=== PATIENT | male | born 1955 | race African-American/Black ===

== ENCOUNTER 2020-08-10 10:04 | Emergency (ER) | payer MEDICARE, MEDICAID, SELFPAY ==
--- NOTE | ~2020-08-10 | CT_ITS ---
EXAMINATION: CT ABDOMEN AND PELVIS WITH CONTRAST CLINICAL INFORMATION: Lower abdominal pain and black stool. Question GI bleed. COMPARISON: None TECHNIQUE: Multidetector volumetric images were obtained from the superior aspect of the liver through the pubic symphysis following administration 85 mL of Omnipaque 350 intravenous contrast. Sagittal and coronal reformatted images were obtained on the technologist's workstation. Oral contrast: No This CT examination was performed using dose optimization techniques as appropriate, variously including the following: *Automated exposure control *Adjustment of mA and/or kV according to patient size (this includes techniques or standardized protocols for targeted exams where dose is matched to indication/reason for exam; i.e. extremities or head) *Use of iterative reconstruction technique DLP: 956 mGy-cm FINDINGS: LUNG BASES: The visualized lung bases are unremarkable. LIVER, GALLBLADDER, AND BILIARY TREE: The liver is normal in size, shape, and attenuation. No focal hepatic lesion or biliary ductal dilatation is present. The gallbladder is unremarkable with no evidence of radiopaque gallstones, gallbladder wall thickening, or obvious pericholecystic inflammatory changes. PANCREAS: Unremarkable. SPLEEN: Unremarkable. ADRENAL GLANDS: Unremarkable. KIDNEYS AND URETERS: There is a 2 cm right renal cyst. There is mild right hydronephrosis. The right ureter does not appear dilated. Appearance is suggestive of a mild right UPJ obstruction. There is no excreted contrast seen in the right ureter. The left kidney is unremarkable. BLADDER: Unremarkable. GASTROINTESTINAL TRACT: There is stool throughout the colon. The small and large bowel are otherwise unremarkable. The appendix is unremarkable. There is question of wall thickening of the stomach versus changes due to underdistention. This is seen on all 3 phases. Clinical correlation recommended. ABDOMINAL WALL: No significant hernia is appreciated. LYMPH NODES: Normal. VASCULAR: Unremarkable. PELVIC VISCERA: The prostate gland is slightly enlarged measuring 3.6 x 5.3 cm in AP and transverse dimension. OSSEOUS STRUCTURES: There are degenerative changes of the spine. CT/CT abdomen pelvis w con IMPRESSION: Question wall thickening of the stomach/gastritis versus changes due to underdistention. Clinical correlation recommended. Constipation. Right renal cyst. Mild right hydronephrosis probably representing UPJ obstruction. Slightly enlarged prostate gland..
[2020-08-10 10:09] VITALS: BP 147/70; PULSE 89; RESP 18; TEMP 37.1; O2SAT 100; BMI 23.7
--- NOTE | 2020-08-10 10:50 | ECG_ITS ---
Test Reason : SOB Blood Pressure : / mmHG Vent. Rate : 074 BPM Atrial Rate : 074 BPM P-R Int : 148 ms QRS Dur : 072 ms QT Int : 376 ms P-R-T Axes : 065 008 052 degrees QTc Int : 417 ms Normal sinus rhythm Normal ECG No previous ECGs available Referred By: Myla Leigh Electronically Signed By:ANNETTE BRIGHT
[2020-08-10] MEDS: 0.9 % Sodium Chloride 1,000 ML 999 ML IVCONT ×2 (12:07→14:39)
[2020-08-10 12:08] LABS: MANUAL DIFF FLAG NO
[2020-08-10 12:10] LABS: Basophils Percent Auto 0.3 % (0-2); Eosinophils Absolute Auto 0.1 X10*3/uL (0.0-0.4); Eosinophils Percent Auto 0.9 % (0-4); Hematocrit 36.1 % (42-52); Hemoglobin 11.9 g/dl (14.0-18.0); Imm Gran Abs Auto 0.02 X10*3/uL (0.00-0.03); Imm Gran Pct Auto 0.2 % (0.0-0.4); Lymphocytes Absolute Auto 3.2 X10*3/uL (1.2-4.9); Lymphocytes Percent Auto 31.7 % (20-40); Mean Corpuscular Hemoglobin 32.2 pg (27.0-33.0); Mean Corpuscular Volume 97.6 fL (80-98); Mean Platelet Volume 8.9 fL (9.4-12.4); Monocytes Absolute Auto 0.8 X10*3/uL (0.1-1.2); Monocytes Percent Auto 7.7 % (2-11); Neutrophils Absolute Auto 5.9 X10*3/uL (2.0-8.3); Neutrophils Percent Auto 59.2 % (45-73); Platelet Count 311 X10*3/uL (160-400); Red Cell Distribution Width 14.2 % (11.0-16.0); White Blood Count 9.9 X10*3/uL (4.8-10.8)
[2020-08-10 12:18] LABS: Glucose Urine UA 500 MG/DL (NEG); INTERNATIONAL NORM RATIO 1.1 (0.9-1.1); Leukocyte Esterase Urine NEG (NEG); Nitrite Urine NEG (NEG); Prothrombin Time 12.5 SEC (10.8-13.0); Specific Gravity - Urine 1.015 (1.005-1.025); Urine Blood NEG (NEG); Urine Ketones NEG (NEG); Urine Protein NEG (NEG-TRACE)
[2020-08-10 12:21] LABS: Partial Thromboplastin Time 32.7 SEC (24.1-38.0)
[2020-08-10 12:28] LABS: Ethanol < 10 mg/dL
[2020-08-10 12:31] LABS: Appearance Urine CLEAR; Color Urine YELLOW
[2020-08-10 12:34] LABS: Alanine Aminotransferase 21 U/L (0-40); Albumin Level 4.1 g/dL (3.5-5.0); Alkaline Phosphatase 63 U/L (39-117); Anion Gap 15 (12-20); Aspartate Amino Transferase 26 U/L (5-37); Bilirubin Direct < 0.2 mg/dL (0.0-0.5); Bilirubin Total 0.3 mg/dL (0.0-1.0); Blood Urea Nitrogen 5 mg/dL (9-16); Calcium 8.8 mg/dL (8.4-10.2); Carbon Dioxide 25 mmol/L (22-29); Chloride 100 mmol/L (96-108); Creatinine Clr Calc Pharmacy 65.3; Estimated Glomerular Filt Rate > 60; Glucose Random 271 mg/dL (60-115); Lipase 46 U/L (8-78); Magnesium 2.4 mg/dL (1.6-2.6); Potassium 5.1 mmol/L (3.3-5.1); Sodium 135 mmol/L (135-145); Total Protein 6.9 g/dL (6.5-8.0)
[2020-08-10 12:56] LABS: Influenza A PCR NEGATIVE (Negative); Influenza B PCR NEGATIVE (Negative); Resp Syncy Virus RNA Qual PCR NEGATIVE (Negative); SARS COV2 PCR INHOUSE NEGATIVE (Negative)
[2020-08-10] MEDS: iohexoL 350 MG/ML 75 ML INFUS..BTL IV (13:30)
[2020-08-10 13:44] LABS: OBS Int Ctl Valid YES; OBS1 POSITIVE (NEGATIVE)
--- NOTE | 2020-08-10 14:11 | ED_ITS ---
HPI - GI Bleed General Chief complaint: Abdominal Pain Stated complaint: abd pain, black stool Time Seen by Provider: 08/10/20 10:50 Source: patient Mode of arrival: ambulatory Limitations: no limitations History of Present Illness HPI Narrative: 65-year-old male with a past medical history of borderline diabetic otherwise denies any other medical history although recently moved from [place] to [place] presenting to the ED with complaints of black stools for the past 4 days with lower abdominal pain with associated nausea worse today. Patient also admits to urinating larger amount of urine than normal. Denies any dizziness, headaches, lightheadedness, changes in vision, sore throat, cough, neck pain/stiffness, chest pain, shortness of breath, dyspnea on exertion, orthopnea, palpitations, lower extremity edema, vomiting, blood streaked emesis, coffee-ground emesis, gross hematemesis, back pain, hematuria, dysuria, blood streak stool, gross hematochezia, recent travel, bad food exposure or any other symptoms complaints or concerns at this time. Reports he has been using [id number] medications although denies using Pepto-Bismol. complaint: melena Onset (ago): day(s) (Four days) Pain Consistency: constant Severity: moderate Relieving factors: none Exacerbating factors: bowel movement Associated symptoms: abdominal pain Treatments Prior to Arrival: OTC meds Related Data Previous Rx's Medication Instructions Recorded acetaminophen [Tylenol Extra 1,000 mg PO QID PRN #14 tab 08/10/20 Strength] alcohol swabs [Alcohol Prep Pads] 1 pad TOPICAL .B.i.d. #100 ea 08/10/20 blood sugar diagnostic [FreeStyle #100 ea 08/10/20 Lite Strips] blood-glucose meter [FreeStyle #1 ea 08/10/20 Lite Meter] docusate sodium [Colace] 100 mg PO BID #14 cap 08/10/20 lancets [FreeStyle Lancets] #100 ea 08/10/20 metformin 500 mg PO DAILY #30 tab 08/10/20 omeprazole 40 mg PO DAILY #30 cap 08/10/20 oxycodone 5 mg PO BID PRN #10 tab 08/10/20 tamsulosin [Flomax] 0.4 mg PO DAILY #30 cap 08/10/20 Allergies Allergy/AdvReac Type Severity Reaction Status Date / Time seafood Allergy Unknown Unknown Verified 08/10/20 10:13 Review of Systems Review of Systems: Constitutional : + Chills, No Weight loss, No Fever, No Night Sweats, No Fatigue, No Malaise ENT/Mouth: No ear pain, No sore throat, No Difficulty swallowing Cardiovascular : No Chest Pain, No SOB, No Dyspnea on Exertion, No Orthopnea, No Edema, No Palpitations Respiratory : No Cough, No Sputum, No Wheezing, No Dyspnea Gastrointestinal : + Nausea, + lower abd pain, + Melena, No Vomiting, No Diarrhea, No blood streaked emesis, No coffee-ground emesis, No gross hematemesis, No blood streak stool, No gross hematochezia, Genitourinary : No irregular bleeding, No Dysuria, No Urinary Frequency, No Hematuria,No Urinary Incontinence, No Urgency, No Flank Pain Musculoskeletal : No joint pain, No Myalgias, No Joint Swelling Skin : No Skin Lesions, No rash Neuro : No Weakness, No Numbness, No Paresthesias, No Loss of Consciousness, No Dizziness, No Headache Psych : No Social Issues, Heme/Lymph: No Bruising, No Bleeding, No Lymphadenopathy Endocrine : + Polyuria, + Polydipsia, No Temperature Intolerance Yes all other systems are reviewed and are negative [facility] Past Medical History Attestation statement: The following information was validated with the patient. Medical History Borderline diabetic Social History Social History Smoking Status: Light tobacco smoker Advance Directives: No Advance Directives Information Provided: No Physical Exam Vital Signs: Vital Signs: Last Vital Signs Temp 97.8 F 08/10/20 15:32 Pulse 70 08/10/20 15:32 Resp 16 08/10/20 15:32 BP 142/68 H 08/10/20 15:32 Pulse Ox 100 08/10/20 15:32 Body Mass Index 23.7 vital signs have been reviewed as normal and appeared to be correct. Blood pressure normal. Heart rate normal. Respiration rate normal. Temperature normal. Oxygen saturation normal. Appearance: Alert. Oriented X3. No acute distress. Head: Normal external exam. Normocephalic. Eyes: PERRLA. EOMI. Conjunctiva and sclera normal. Eyelids normal. ENT: Pharynx normal. Uvula midline. Moist mucous membranes. Neck: Normal inspection. Neck supple. FROM. No adenopathy. No meningeal signs. CVS: Normal heart rate and rhythm. Heart sound normal. No murmurs noted. Pulses normal throughout. Respiratory: No respiratory distress. Painless inspiration. Breath sounds normal. No wheezes/rales/rhonchi noted. Chest nontender. No accessory muscle usage noted or decreased air movement noted. Abdomen: Soft and mild tenderness to palpation to suprapubic/bilateral lower abdomen. Nondistended. No guarding. No rigidity. Bowel sounds normal in all 4 quadrants. No distention noted. No organomegaly noted. No visible injury noted. No rebound tenderness. Negative Rovsing sign. Negative obturator's sign. Negative psoas sign. Negative Tatum sign. : [employer] present Rosalba, PCT. Normal external rectal exam no hemorrhoids noted. No fissures noted. Normal sphincter tone noted. Normal rectal tone. On rectal exam no internal hemorrhoids noted. Patient with black colored stools. Back: No CVA tenderness. Full range of motion noted. Skin: Skin warm and dry. Normal skin color. Normal skin turgor. No rashes/lesions/lacerations noted. Extremities: No lower extremity edema noted. No calf tenderness noted. Extremities exhibit normal range of motion. Extremities nontender. Neuro: Oriented X 3. No motor deficit. No sensory deficit. Reflexes normal. Course Course Course Narrative: 10:50am - 65-year-old male with a past medical history of borderline diabetic otherwise denies any other medical history although recently moved from [place] to [place] presenting to the ED with complaints of black stools for the past 4 days with lower abdominal pain with associated nausea worse today. Patient also admits to urinating larger amount of urine than normal. - Plan: Labs, stool occult, UA, A1c level, EKG, CT scan of abdomen and pelvis with IV contrast. Provide a L of IV fluids then re-evaluate. Reevaluation(s) Reevaluation #1: - labs obtained and patient with mild anemia RBC at 3.7. - hemoglobin 11.9 - hematocrit 36.1 - no prior labs in our system to compare to at this time. - BUN 5 - random glucose 271 - patient with 500 glucose in urine otherwise no evidence of UTI. - patient is positive for stool occult blood - negative for COVID/RSV/flu - CT scan of abdomen and pelvis with IV contrast revealed IMPRESSION: Question wall thickening of the stomach/gastritis versus changes due to underdistention. Clinical correlation recommended. Constipation. Right renal cyst. Mild right hydronephrosis probably representing UPJ obstruction. Slightly enlarged prostate gland. - therefore consulted with [employer] [employer] [facility] [employer] Dr. Tobar and we discussed the patient together and he reported since the patient is hemodynamically stable and not actively bleeding not vomiting blood and not having bright red stools that the patient can be treated with a PPI 40 mg of omeprazole and can follow up with him on an outpatient basis. - awaiting to consult with Dr. Chowdhury the urologist based on the patient's mild right hydronephrosis/right UPJ obstruction - patient understands agrees with this plan. Time: 14:38 Reevaluation #2: - I consulted with Dr. Chowdhury regarding the CT scan results and he reported that as long as the patient's kidney function was within normal limits that the patient can be discharged and followed up as an outpatient basis. Patient's kidney function is within normal limits therefore will DC home with symptomatic treatment instructions to follow up with Dr. Chowdhury and Dr. Tobar. Patient understands agrees with this plan. Time: 15:09 [facility] - GI Bleed Medical Records Attestation: I reviewed the patient's medical records. Lab Data Attestation: I reviewed the patient's lab results. Result diagrams: 08/10/20 12:02 08/10/20 12:02 Labs: Lab Results 08/10/20 08/10/20 08/10/20 Range/Units 12:02 12:02 12:02 WBC 9.9 (4.8-10.8) X10*3/uL RBC 3.70 L (4.60-5.80) X10*6/uL Hgb 11.9 L (14.0-18.0) g/dl Hct 36.1 L (42-52) % MCV 97.6 (80-98) fL MCH 32.2 (27.0-33.0) pg MCHC 33.0 (31.0-36.0) g/dl RDW 14.2 (11.0-16.0) % Plt Count 311 (160-400) X10*3/uL MPV 8.9 L (9.4-12.4) fL Immature Gran % (Auto) 0.2 (0.0-0.4) % Neut % (Auto) 59.2 (45-73) % Lymph % (Auto) 31.7 (20-40) % Lamar % (Auto) 7.7 (2-11) % Eos % (Auto) 0.9 (0-4) % Baso % (Auto) 0.3 (0-2) % Lymph # (Auto) 3.2 (1.2-4.9) X10*3/uL Lamar # (Auto) 0.8 (0.1-1.2) X10*3/uL Eos # (Auto) 0.1 (0.0-0.4) X10*3/uL Baso # (Auto) 0.0 (0.0-0.2) X10*3/uL Abs Immat Gran (auto) 0.02 (0.00-0.03) X10*3/uL Absolute Neuts (auto) 5.9 (2.0-8.3) X10*3/uL Absolute Nucleated RBC 0.000 (0.0-0.012) X10*3/uL Nucleated RBC % (auto) 0.0 (0.0-0.2) /100WBC Hold Purple Top SEE NOTE PT 12.5 (10.8-13.0) SEC INR 1.1 (0.9-1.1) APTT 32.7 (24.1-38.0) SEC Sodium (135-145) mmol/L Potassium (3.3-5.1) mmol/L Chloride (96-108) mmol/L Carbon Dioxide (22-29) mmol/L Anion Gap (12-20) BUN (9-16) mg/dL Creatinine (0.5-1.4) mg/dL Estim Creat Clear Calc Estimated GFR POC Glucose (60-115) mg/dL Random Glucose (60-115) mg/dL Calcium (8.4-10.2) mg/dL Magnesium (1.6-2.6) mg/dL Total Bilirubin (0.0-1.0) mg/dL Direct Bilirubin (0.0-0.5) mg/dL AST (5-37) U/L ALT (0-40) U/L Alkaline Phosphatase (39-117) U/L Total Protein (6.5-8.0) g/dL Albumin (3.5-5.0) g/dL Lipase (8-78) U/L Urine Color Urine Appearance Urine pH (5.0-8.0) Ur Specific [place] (1.005-1.025) Urine Protein (NEG-TRACE) MG/DL Urine Glucose (UA) (NEG) MG/DL Urine Ketones (NEG) MG/DL Urine Blood (NEG) Urine Nitrite (NEG) Ur Leukocyte Esterase (NEG) Stool Occult Blood (NEGATIVE) Ethyl Alcohol mg/dL Coronavirus (PCR) (Negative) Influenza Type A (PCR) (Negative) Influenza Type B (PCR) (Negative) RSV RNA Qual (PCR) (Negative) 08/10/20 08/10/20 08/10/20 Range/Units 12:02 12:02 12:02 WBC (4.8-10.8) X10*3/uL RBC (4.60-5.80) X10*6/uL Hgb (14.0-18.0) g/dl Hct (42-52) % MCV (80-98) fL MCH (27.0-33.0) pg MCHC (31.0-36.0) g/dl RDW (11.0-16.0) % Plt Count (160-400) X10*3/uL MPV (9.4-12.4) fL Immature Gran % (Auto) (0.0-0.4) % Neut % (Auto) (45-73) % Lymph % (Auto) (20-40) % Lamar % (Auto) (2-11) % Eos % (Auto) (0-4) % Baso % (Auto) (0-2) % Lymph # (Auto) (1.2-4.9) X10*3/uL Lamar # (Auto) (0.1-1.2) X10*3/uL Eos # (Auto) (0.0-0.4) X10*3/uL Baso # (Auto) (0.0-0.2) X10*3/uL Abs Immat Gran (auto) (0.00-0.03) X10*3/uL Absolute Neuts (auto) (2.0-8.3) X10*3/uL Absolute Nucleated RBC (0.0-0.012) X10*3/uL Nucleated RBC % (auto) (0.0-0.2) /100WBC Hold Purple Top PT (10.8-13.0) SEC INR (0.9-1.1) APTT (24.1-38.0) SEC Sodium 135 (135-145) mmol/L Potassium 5.1 (3.3-5.1) mmol/L Chloride 100 (96-108) mmol/L Carbon Dioxide 25 (22-29) mmol/L Anion Gap 15 (12-20) BUN 5 L (9-16) mg/dL Creatinine 1.12 (0.5-1.4) mg/dL Estim Creat Clear Calc 65.3 Estimated GFR > 60 POC Glucose (60-115) mg/dL Random Glucose 271 H (60-115) mg/dL Calcium 8.8 (8.4-10.2) mg/dL Magnesium 2.4 (1.6-2.6) mg/dL Total Bilirubin 0.3 (0.0-1.0) mg/dL Direct Bilirubin < 0.2 (0.0-0.5) mg/dL AST 26 (5-37) U/L ALT 21 (0-40) U/L Alkaline Phosphatase 63 (39-117) U/L Total Protein 6.9 (6.5-8.0) g/dL Albumin 4.1 (3.5-5.0) g/dL Lipase 46 (8-78) U/L Urine Color Urine Appearance Urine pH (5.0-8.0) Ur Specific [place] (1.005-1.025) Urine Protein (NEG-TRACE) MG/DL Urine Glucose (UA) (NEG) MG/DL Urine Ketones (NEG) MG/DL Urine Blood (NEG) Urine Nitrite (NEG) Ur Leukocyte Esterase (NEG) Stool Occult Blood (NEGATIVE) Ethyl Alcohol < 10 mg/dL Coronavirus (PCR) NEGATIVE (Negative) Influenza Type A (PCR) NEGATIVE (Negative) Influenza Type B (PCR) NEGATIVE (Negative) RSV RNA Qual (PCR) NEGATIVE (Negative) 08/10/20 08/10/20 08/10/20 Range/Units 12:02 13:37 15:30 WBC (4.8-10.8) X10*3/uL RBC (4.60-5.80) X10*6/uL Hgb (14.0-18.0) g/dl Hct (42-52) % MCV (80-98) fL MCH (27.0-33.0) pg MCHC (31.0-36.0) g/dl RDW (11.0-16.0) % Plt Count (160-400) X10*3/uL MPV (9.4-12.4) fL Immature Gran % (Auto) (0.0-0.4) % Neut % (Auto) (45-73) % Lymph % (Auto) (20-40) % Lamar % (Auto) (2-11) % Eos % (Auto) (0-4) % Baso % (Auto) (0-2) % Lymph # (Auto) (1.2-4.9) X10*3/uL Lamar # (Auto) (0.1-1.2) X10*3/uL Eos # (Auto) (0.0-0.4) X10*3/uL Baso # (Auto) (0.0-0.2) X10*3/uL Abs Immat Gran (auto) (0.00-0.03) X10*3/uL Absolute Neuts (auto) (2.0-8.3) X10*3/uL Absolute Nucleated RBC (0.0-0.012) X10*3/uL Nucleated RBC % (auto) (0.0-0.2) /100WBC Hold Purple Top PT (10.8-13.0) SEC INR (0.9-1.1) APTT (24.1-38.0) SEC Sodium (135-145) mmol/L Potassium (3.3-5.1) mmol/L Chloride (96-108) mmol/L Carbon Dioxide (22-29) mmol/L Anion Gap (12-20) BUN (9-16) mg/dL Creatinine (0.5-1.4) mg/dL Estim Creat Clear Calc Estimated GFR POC Glucose 196 H (60-115) mg/dL Random Glucose (60-115) mg/dL Calcium (8.4-10.2) mg/dL Magnesium (1.6-2.6) mg/dL Total Bilirubin (0.0-1.0) mg/dL Direct Bilirubin (0.0-0.5) mg/dL AST (5-37) U/L ALT (0-40) U/L Alkaline Phosphatase (39-117) U/L Total Protein (6.5-8.0) g/dL Albumin (3.5-5.0) g/dL Lipase (8-78) U/L Urine Color YELLOW Urine Appearance CLEAR Urine pH 7.0 (5.0-8.0) Ur Specific [place] 1.015 (1.005-1.025) Urine Protein NEG (NEG-TRACE) MG/DL Urine Glucose (UA) 500 H (NEG) MG/DL Urine Ketones NEG (NEG) MG/DL Urine Blood NEG (NEG) Urine Nitrite NEG (NEG) Ur Leukocyte Esterase NEG (NEG) Stool Occult Blood POSITIVE (NEGATIVE) Ethyl Alcohol mg/dL Coronavirus (PCR) (Negative) Influenza Type A (PCR) (Negative) Influenza Type B (PCR) (Negative) RSV RNA Qual (PCR) (Negative) Imaging Data CT scan of abdomen and pelvis with IV contrast: Attestation: I personally reviewed and interpreted this imaging study as follows: Radiologist's impression: FINDINGS: LUNG BASES: The visualized lung bases are unremarkable. LIVER, GALLBLADDER, AND BILIARY TREE: The liver is normal in size, shape, and attenuation. No focal hepatic lesion or biliary ductal dilatation is present. The gallbladder is unremarkable with no evidence of radiopaque gallstones, gallbladder wall thickening, or obvious pericholecystic inflammatory changes. PANCREAS: Unremarkable. SPLEEN: Unremarkable. ADRENAL GLANDS: Unremarkable. KIDNEYS AND URETERS: There is a 2 cm right renal cyst. There is mild right hydronephrosis. The right ureter does not appear dilated. Appearance is suggestive of a mild right UPJ obstruction. There is no excreted contrast seen in the right ureter. The left kidney is unremarkable. BLADDER: Unremarkable. GASTROINTESTINAL TRACT: There is stool throughout the colon. The small and large bowel are otherwise unremarkable. The appendix is unremarkable. There is question of wall thickening of the stomach versus changes due to underdistention. This is seen on all 3 phases. Clinical correlation recommended. ABDOMINAL WALL: No significant hernia is appreciated. LYMPH NODES: Normal. VASCULAR: Unremarkable. PELVIC VISCERA: The prostate gland is slightly enlarged measuring 3.6 x 5.3 cm in AP and transverse dimension. OSSEOUS STRUCTURES: There are degenerative changes of the spine. CT/CT abdomen pelvis w con IMPRESSION: Question wall thickening of the stomach/gastritis versus changes due to underdistention. Clinical correlation recommended. Constipation. Right renal cyst. Mild right hydronephrosis probably representing UPJ obstruction. Slightly enlarged prostate gland.. ECG Data Attestation: I personally reviewed and interpreted this ECG as follows: ECG interpretation date: 08/10/20 ECG interpretation time: 10:23 Interpretation: Normal sinus rhythm restrict fluid to 74 with a normal SC interval normal QRS duration normal QT/QTC interval. No acute ischemic changes noted. No prior EKGs in our system to compare to at this time. Discharge Plan Discharge Clinical Impression: Diabetes mellitus, new onset, Occult blood positive stool, Constipation, Hydronephrosis of right kidney, Cyst of right kidney, Ureteropelvic junction (U PJ) obstruction, right, Enlarged prostate Patient Disposition: Home, Self-Care Instructions: Gastrointestinal Bleeding (ED), Constipation (ED), Kidney Stones (ED), Enlarged Prostate (BPH) (ED), Kidney Cyst (ED), Diabetes and Nutrition (ED), Diabetes and Exercise (ED) Additional Instructions: You need to follow-up with Dr. Tobar regarding your black/GI stool occult bleed. You also need to follow-up with Dr. Chowdhury regarding your kidney stones and your enlarged prostate. You should also follow-up with a primary care provider I gave you a list of providers that you can call to follow-up with your new onset diabetes. Return if any new or worsening symptoms especially if you started vomiting bright red blood or having worsening rectal bleeding including bright red blood. Stay away from any Motrin/aspirin/Aleve. You need to check your glucose by fingerstick at least twice a day and before meals. Prescriptions: New metformin 500 mg tablet 500 mg PO DAILY Qty: 30 RF: 1 docusate sodium [Colace] 100 mg capsule 100 mg PO BID Qty: 14 RF: 0 tamsulosin [Flomax] 0.4 mg capsule 0.4 mg PO DAILY Qty: 30 RF: 0 acetaminophen [Tylenol Extra Strength] 500 mg tablet 1,000 mg PO QID PRN (Reason: fever or pain) Qty: 14 RF: 0 oxycodone 5 mg tablet 5 mg PO BID PRN (Reason: pain) Qty: 10 RF: 0 (DME) blood-glucose meter [FreeStyle Lite Meter] Kit See Rx Instructions .ROUTE .MEDSUPPLY Qty: 1 RF: 0 (DME) FreeStyle Lite Strips Strip See Rx Instructions .ROUTE .MEDSUPPLY Qty: 100 RF: 0 omeprazole 40 mg capsule,delayed release(DR/EC) 40 mg PO DAILY Qty: 30 RF: 0 alcohol swabs [Alcohol Prep Pads] Pads, Medicated 1 pad topical .B.i.d. Qty: 100 RF: 0 (DME) lancets [FreeStyle Lancets] 28 gauge misc See Rx Instructions .ROUTE .MEDSUPPLY Qty: 100 RF: 0 Referrals: Dayne Chowdhury MD [Physician] - 1 day (Call tomorrow to make a follow-up appointment within the next week) Donovan Tobar [Physician] - 1 day (Call tomorrow to make a follow-up appointment within the next week) Print Language: Arabic
[2020-08-10] MEDS: Omeprazole 40 MG CAPSULE.DR PO (15:11)
[2020-08-10 15:15] VITALS: BP 161/84; PULSE 79; RESP 16; TEMP 36.9
[2020-08-10 15:32] VITALS: BP 142/68; PULSE 70; RESP 16; TEMP 36.6; O2SAT 100
--- NOTE | 2020-08-10 15:33 | PC.NURSE ---
poc is 196 ,pa annia aware .
[2020-08-10 15:39] LABS: Glucose, Whole Blood 196 mg/dL (60-115)
[2020-08-10 16:05] VITALS: BP 119/54; PULSE 84; RESP 16; O2SAT 99
[2020-08-10] MEDS: metFORMIN HCl ER 500 MG TAB.ER.24H PO (16:05)
[2020-08-10 17:17] LABS: Glucose, Whole Blood 260 mg/dL (60-115)
[2020-08-11 07:12] LABS: Estimated Average Glucose 237 mg/dL; Hemoglobin A1c % 9.9 %
== END 2020-08-10 17:20 | disposition home or self-care (01) ==
PROVIDERS: Physician Assistant Medical; Emergency Provider Emergency Medicine
DX: R19.5 Other fecal abnormalities (principal); K59.00 Constipation, unspecified; N13.2 Hydronephrosis with renal and ureteral calculous obstruction; N28.1 Cyst of kidney, acquired; N40.0 Benign prostatic hyperplasia without lower urinary tract symptoms; E11.9 Type 2 diabetes mellitus without complications; Z20.822 Contact with and (suspected) exposure to COVID-19
CPT/HCPCS: 0241U; 36415; 74177; 80048; 80076; 80320; 81003; 82272; 82947; 83036; 83690; 83735; 85025; 85610; 85730; 93005; 96360; 96361; 99284; Q9967

== ENCOUNTER → 2020-08-27 16:12 | Outpatient (BNVA) | payer MEDICARE, MEDICAID, SELFPAY | PROVIDERS: Visit Provider Urology | DX: Z13.89 Encounter for screening for other disorder (principal) | CPT/HCPCS: Q3014 ==

== ENCOUNTER 2020-10-22 12:12 | Outpatient (REF) | payer MEDICARE, MEDICAID, SELFPAY ==
[2020-10-22 13:17] LABS: PSA,Total (Free>4and<10) 0.42 ng/mL (0.00-4.00)
== END 2020-10-22 12:13 | disposition home or self-care (01) ==
LOC: HO.LAB 12:12
PROVIDERS: Visit Provider Urology
DX: Z12.5 Encounter for screening for malignant neoplasm of prostate (principal); N40.1 Benign prostatic hyperplasia with lower urinary tract symptoms; N13.8 Other obstructive and reflux uropathy; R35.1 Nocturia
CPT/HCPCS: 36415; 84153

== ENCOUNTER → 2020-10-28 15:00 | Outpatient (BNVA) | payer MEDICARE, MEDICAID, SELFPAY | PROVIDERS: Visit Provider Urology | DX: Z13.89 Encounter for screening for other disorder (principal) | CPT/HCPCS: 99212 ==

== ENCOUNTER 2021-10-22 18:34 | Emergency (ER) | payer MEDICARE, MEDICAID, SELFPAY ==
--- NOTE | ~2021-10-22 | XR_ITS ---
EXAMINATION: XR ABDOMEN KUB CLINICAL INDICATION: No bowel movement for 24 days COMPARISON: CT abdomen and pelvis on 08/10/20 TECHNIQUE: AP view of the abdomen. FINDINGS: The bowel gas pattern is normal with no evidence of ileus or obstruction. Moderate stool burden. No unusual soft tissue calcifications are noted. The bones are unremarkable. XR/XR KUB IMPRESSION: Moderate stool burden.
[2021-10-22 18:52] VITALS: BP 149/93; PULSE 80; RESP 19; TEMP 36.6; O2SAT 98; BMI 22.8
[2021-10-22 19:12] LABS: MANUAL DIFF FLAG NO
[2021-10-22 19:16] LABS: Appearance Urine CLEAR; Basophils Percent Auto 0.4 % (0-2); Color Urine YELLOW; Eosinophils Absolute Auto 0.2 X10*3/uL (0.0-0.4); Eosinophils Percent Auto 2.3 % (0-4); Glucose Urine UA >=1000 MG/DL (NEG); Hematocrit 45.9 % (42.0-52.0); Hemoglobin 15.8 g/dl (14.0-18.0); Imm Gran Abs Auto 0.01 X10*3/uL (0.00-0.03); Imm Gran Pct Auto 0.1 % (0.0-0.4); Leukocyte Esterase Urine NEG (NEG); Lymphocytes Absolute Auto 3.6 X10*3/uL (1.2-4.9); Lymphocytes Percent Auto 45.4 % (20-40); Mean Corpuscular HGB Conc 34.4 g/dl (31.0-36.0); Mean Corpuscular Volume 92.9 fL (80.0-98.0); Mean Platelet Volume 9.8 fL (9.4-12.4); Monocytes Absolute Auto 0.5 X10*3/uL (0.1-1.2); Monocytes Percent Auto 5.8 % (2-11); Neutrophils Absolute Auto 3.6 x10*3/uL (2.0-8.3); Nitrite Urine NEG (NEG); Platelet Count 195 X10*3/uL (160-400); Red Blood Count 4.94 X10*6/uL (4.60-5.80); Red Cell Distribution Width 12.4 % (11.0-16.0); Urine Blood NEG (NEG); Urine Ketones NEG (NEG); Urine Protein TRACE MG/DL (NEG-TRACE); White Blood Count 7.9 X10*3/uL (4.8-10.8)
[2021-10-22 19:27] LABS: Bacteria Urine TRACE /LPF; RBC Urine 0 /HPF (0); WBC Urine 0 /HPF (0-4)
[2021-10-22 19:37] LABS: Alanine Aminotransferase 14 U/L (0-40); Albumin Level 4.2 g/dL (3.5-5.0); Alkaline Phosphatase 82 U/L (39-117); Anion Gap 15 (12-20); Aspartate Amino Transferase 16 U/L (5-37); Bilirubin Direct 0.2 mg/dL (0.0-0.5); Bilirubin Total 0.4 mg/dL (0.0-1.0); Blood Urea Nitrogen 9 mg/dL (9-16); Calcium 8.9 mg/dL (8.4-10.2); Carbon Dioxide 21 mmol/L (22-29); Chloride 101 mmol/L (96-108); Creatinine Clr Calc Pharmacy 67.7; Estimated Glomerular Filt Rate > 60; Glucose Random 279 mg/dL (60-115); Lipase 110 U/L (8-78); Potassium 4.3 mmol/L (3.3-5.1); Sodium 133 mmol/L (135-145); Total Protein 7.5 g/dL (6.5-8.0)
[2021-10-22 23:47] VITALS: BP 164/87; PULSE 64; RESP 18; TEMP 36.4; O2SAT 99
--- NOTE | 2021-10-22 23:47 | ED_ITS ---
HPI - Abdominal Pain General Chief Complaint: Abdominal Pain Stated Complaint: sharp abd pain/vomitng Source: patient Mode of arrival: ambulatory Limitations: no limitations History of Present Illness HPI narrative: 66-year-old male presents with 4 days of cramping abdominal pain, constipation with nausea. MD elicited complaint: abdominal pain Pertinent past history: constipation Onset (ago): day(s) (4) Pain Consistency: constant Location: diffuse Severity: moderate Quality: cramping and sharp Radiation: none Migration to: no migration Exacerbating factors: eating and movement Relieving factors: nothing Associated symptoms: nausea Related Data Previous Rx's Medication Instructions Recorded acetaminophen 500 mg tablet 1,000 mg PO QID PRN fever or pain 08/10/20 (Tylenol Extra Strength) #14 tabs alcohol swabs (Alcohol Prep Pads) 1 pad topical .B.i.d. New onset 08/10/20 diabetes glucose monitoring #100 ea blood sugar diagnostic (FreeStyle #100 ea 08/10/20 Lite Strips) blood-glucose meter (FreeStyle #1 ea 08/10/20 Lite Meter) docusate sodium 100 mg capsule 100 mg PO BID Constipation #14 caps 08/10/20 (Colace) lancets 28 gauge (FreeStyle #100 ea 08/10/20 Lancets) metformin 500 mg tablet 500 mg PO DAILY New onset diabetes 08/10/20 #30 tabs omeprazole 40 mg capsule,delayed 40 mg PO DAILY Gastritis #30 caps 08/10/20 release oxycodone 5 mg tablet 5 mg PO BID PRN pain #10 tabs 08/10/20 tamsulosin 0.4 mg capsule (Flomax) 0.4 mg PO DAILY Enlarged prostate 08/10/20 #30 caps finasteride 5 mg tablet 5 mg PO DAILY 90 days #90 tabs 10/28/20 tamsulosin 0.4 mg capsule 0.4 mg PO BEDTIME 90 days #90 caps 10/28/20 polyethylene glycol 3350 17 17 g PO DAILY #510 grams 10/23/21 gram/dose oral powder (Miralax) Allergies Allergy/AdvReac Type Severity Reaction Status Date / Time seafood Allergy Unknown Unknown Verified 10/28/20 15:16 Review of Systems Review of Systems Constitutional: No Fever, No Chills ENT/Mouth: No Ear Pain, No Hoarseness, No sore throat Eyes: No Eye Pain, No Swelling, No Redness, No Foreign Body Cardiovascular: No Chest Pain, No SOB Respiratory: No Cough, No Dyspnea Gastrointestinal: Positive Nausea, No Vomiting, No Diarrhea, positive abdominal Pain Genitourinary: No Dysuria, No Hematuria Musculoskeletal: No joint pain, No Myalgias, No Joint Swelling Skin: No Skin lacerations, No rash Neuro: No Weakness, No Numbness, No Paresthesias, No Loss of Consciousness, No Dizziness, No Headache Psych: No Anxiety/Panic, No Depression Heme/Lymph: no easy bruising, no Lymphadenopathy Endocrine: No Polyuria, No Polydipsia Yes all other systems are reviewed and are negative [facility] Past Medical History Attestation statement: The following information was validated with the patient. Source: old records reviewed Medical History Borderline diabetic Social History Social History Advance Directives: No Advance Directives Information Provided: No Physical Exam ED Vital Signs: Vital Signs - 24 hr 10/22/21 18:52 10/22/21 23:47 Temperature 98 F 97.6 F Pulse Rate 80 64 Respiratory Rate 19 18 Blood Pressure 149/93 H 164/87 H Pulse Oximetry 98 99 Oxygen Delivery Method Room Air Room Air BMI result Body Mass Index 22.8 Appearance: Alert. Oriented X3. Mild distress. Eyes: Pupils equal, round and reactive to light. ENT: Pharynx normal. Neck: Normal inspection. Neck supple. CVS: Normal heart rate and rhythm. Pulses normal. Respiratory: No respiratory distress. Breath sounds normal. Abdomen: Soft and diffusely tender, no rigidity or rebound. Skin: Skin warm and dry. Normal skin color. Normal skin turgor. Extremities: No lower extremity edema. Gait well-balanced well coordinated. Neuro: No motor deficit. No sensory deficit. Cranial nerves 2-12 intact. Course Course Course Narrative: 66-year-old male presents with 4 days of abdominal pain, constipation, and naus ea. Labs were drawn with the patient was in the emergency department waiting room. Patient is afebrile, hypertensive, heart rate 64, even unlabored respirations, O2 sat 99% on room air. Lab values are unremarkable. Physical exam indicates diffuse abdominal tenderness without rigidity or rebound. No CVA tenderness noted. X-rays indicate moderate stool burden. Will treat for constipation. Highly unlikely to be appendicitis as there is no white count, no rigidity, no rebound on abdominal exam. Urinalysis is negative. 01:36 patient had a bowel movement. States that his abdomen feels better s/p BM. States that he does have problems with constipation. Will have patient follow-up with primary care physician and suggest MiraLax daily. Patient verbalized understanding of and agrees to plan of care to discharge home. Verbalized understanding of signs and symptoms indicating need for emergent intervention MDM - Abdominal Pain Differential Diagnosis Differential diagnosis: Likely abdominal pain and constipation Medical Records Attestation: I reviewed the patient's medical records. Lab Data Attestation: I reviewed the patient's lab results. Result diagrams: 10/22/21 18:58 10/22/21 18:58 Labs: Lab Results 10/22/21 10/22/21 10/22/21 Range/Units 18:58 18:58 18:58 WBC 7.9 (4.8-10.8) X10*3/uL RBC 4.94 (4.60-5.80) X10*6/uL Hgb 15.8 (14.0-18.0) g/dl Hct 45.9 (42.0-52.0) % MCV 92.9 (80.0-98.0) fL MCH 32.0 (27.0-33.0) pg MCHC 34.4 (31.0-36.0) g/dl RDW 12.4 (11.0-16.0) % Plt Count 195 (160-400) X10*3/uL MPV 9.8 (9.4-12.4) fL Immature Gran % (Auto) 0.1 (0.0-0.4) % Neut % (Auto) 46.0 (45-73) % Lymph % (Auto) 45.4 H (20-40) % [place] % (Auto) 5.8 (2-11) % Eos % (Auto) 2.3 (0-4) % Baso % (Auto) 0.4 (0-2) % Lymph # (Auto) 3.6 (1.2-4.9) X10*3/uL [place] # (Auto) 0.5 (0.1-1.2) X10*3/uL Eos # (Auto) 0.2 (0.0-0.4) X10*3/uL Baso # (Auto) 0.0 (0.0-0.2) X10*3/uL Abs Immat Gran (auto) 0.01 (0.00-0.03) X10*3/uL Absolute Neuts (auto) 3.6 (2.0-8.3) x10*3/uL Absolute Nucleated RBC 0.000 (0.0-0.012) X10*3/uL Nucleated RBC % (auto) 0.0 (0.0-0.2) /100WBC Sodium 133 L (135-145) mmol/L Potassium 4.3 (3.3-5.1) mmol/L Chloride 101 (96-108) mmol/L Carbon Dioxide 21 L (22-29) mmol/L Anion Gap 15 (12-20) BUN 9 (9-16) mg/dL Creatinine 1.06 (0.5-1.4) mg/dL Estim Creat Clear Calc 67.7 Estimated GFR > 60 Random Glucose 279 H (60-115) mg/dL Calcium 8.9 (8.4-10.2) mg/dL Total Bilirubin 0.4 (0.0-1.0) mg/dL Direct Bilirubin 0.2 (0.0-0.5) mg/dL AST 16 (5-37) U/L ALT 14 (0-40) U/L Alkaline Phosphatase 82 D (39-117) U/L Total Protein 7.5 (6.5-8.0) g/dL Albumin 4.2 (3.5-5.0) g/dL Lipase 110 H (8-78) U/L Urine Color YELLOW Urine Appearance CLEAR Urine pH 8.0 (5.0-8.0) Ur Specific Wanda 1.010 (1.005-1.025) Urine Protein TRACE (NEG-TRACE) MG/DL Urine Glucose (UA) >=1000 H (NEG) MG/DL Urine Ketones NEG (NEG) MG/DL Urine Blood NEG (NEG) Urine Nitrite NEG (NEG) Ur Leukocyte Esterase NEG (NEG) Urine RBC 0 (0) /HPF Urine WBC 0 (0-4) /HPF Ur Squamous Epith Cells NONE /LPF Urine Bacteria TRACE /LPF Imaging Data KUB: Attestation: I personally reviewed and interpreted this imaging study as follows: Radiologist's impression: EXAMINATION: XR ABDOMEN KUB CLINICAL INDICATION: No bowel movement for 24 days? COMPARISON: CT abdomen and pelvis on 08/10/20? TECHNIQUE: AP view of the abdomen. FINDINGS: The bowel gas pattern is normal with no evidence of ileus or obstruction. Moderate stool burden. No unusual soft tissue calcifications are noted. The bones are unremarkable. XR/XR KUB IMPRESSION: Moderate stool burden. Discharge Plan Discharge Clinical Impression: Constipation Patient Disposition: Home, Self-Care Instructions: Constipation (ED), Fleet Enema (ED) Additional Instructions: You were evaluated for abdominal pain. X-rays indicates constipation. Lab values are negative. Urinalysis is negative. You prescribed opioids for pain management. Opioids cause constipation. Please drink plenty of fluids. Take MiraLax daily. Follow the instructions on the package. If constipation continues to be a problem you may consider following up with Gastroenterology. I referred you to Dr. Leonardo. You may also consider following up with the primary care physician. Thank you for choosing this emergency department for evaluation. Please follow-up with primary care physician as needed. Return to the emergency department for any new, concerning, or worsening symptoms. Prescriptions: New polyethylene glycol 3350 [Miralax] 17 gram/dose powder 17 g PO DAILY Qty: 510 0RF No Action metformin 500 mg tablet 500 mg PO DAILY Qty: 30 1RF docusate sodium [Colace] 100 mg capsule 100 mg PO BID Qty: 14 0RF tamsulosin [Flomax] 0.4 mg capsule 0.4 mg PO DAILY Qty: 30 0RF acetaminophen [Tylenol Extra Strength] 500 mg tablet 1,000 mg PO QID PRN (Reason: fever or pain) Qty: 14 0RF oxycodone 5 mg tablet 5 mg PO BID PRN (Reason: pain) Qty: 10 0RF (DME) blood-glucose meter [FreeStyle Lite Meter] Kit See Rx Instructions .ROUTE .MEDSUPPLY Qty: 1 0RF Rx Instructions: As directed (DME) FreeStyle Lite Strips Strip See Rx Instructions .ROUTE .MEDSUPPLY Qty: 100 0RF Rx Instructions: As directed omeprazole 40 mg capsule,delayed release(DR/EC) 40 mg PO DAILY Qty: 30 0RF alcohol swabs [Alcohol Prep Pads] Pads, Medicated 1 pad topical .B.i.d. Qty: 100 0RF (DME) lancets [FreeStyle Lancets] 28 gauge misc See Rx Instructions .ROUTE .MEDSUPPLY Qty: 100 0RF Rx Instructions: As directed tamsulosin 0.4 mg capsule 0.4 mg PO BEDTIME 90 Days Qty: 90 1RF finasteride 5 mg tablet 5 mg PO DAILY 90 Days Qty: 90 1RF Referrals: Jonah Leonardo MD [Physician] - (Constipation)
[2021-10-23] MEDS: Sodium Phosphate,Mono-Dibasic 133 ML ENEMA PR (00:10)
== END 2021-10-23 01:55 | disposition home or self-care (01) ==
PROVIDERS: Emergency Provider Internal Medicine
DX: K59.00 Constipation, unspecified (principal); R10.9 Unspecified abdominal pain
CPT/HCPCS: 36415; 74018; 80048; 80076; 81001; 83690; 85025; 99283

== ENCOUNTER 2023-10-17 15:41 | Emergency (ER) | payer MEDICARE, MEDICAID, SELFPAY ==
--- NOTE | ~2023-10-17 | XR_ITS ---
EXAMINATION: XR SHOULDER, RIGHT CLINICAL INFORMATION: Pain, status post injury COMPARISON: None available. TECHNIQUE: Four views of the right shoulder. FINDINGS: No visible acute fracture or dislocation. Glenohumeral and acromioclavicular alignment is anatomic with normal joint space. Small inferior glenoid spur. Small calcification adjacent to greater tuberosity could reflect calcific tendinitis. XR/XR shoulder RT min 2V IMPRESSION: No radiographic evidence of acute fracture. Possible small focus of calcific tendinitis.
--- NOTE | ~2023-10-17 | CT_ITS ---
EXAMINATION: CT HEAD WITHOUT CONTRAST CLINICAL INFORMATION: Headache status-post fall. COMPARISON: None available. TECHNIQUE: Contiguous axial imaging was performed from the skull base to vertex without intravenous administration of contrast. Multiplanar reformatted images are submitted. This CT examination was performed using dose optimization techniques as appropriate, variously including the following: *Automated exposure control *Adjustment of mA and/or kV according to patient size (this includes techniques or standardized protocols for targeted exams where dose is matched to indication/reason for exam; i.e. extremities or head) *Use of iterative reconstruction technique DLP: 1193 mGy-cm (head and cervical spine) FINDINGS: There is no acute intracranial hemorrhage or evidence of territorial infarction. No abnormal mass effect or midline shift is seen. Muir to white matter differentiation is well preserved. There is no abnormal attenuation within the brain parenchyma. The ventricles are normal in size. No extra-axial fluid collections are identified. The calvarium and scalp soft tissues are normal. The middle ear cavity and mastoid air cells are clear. There is mild left frontal mucosal thickening. There is opacification of one of the anterior left ethmoid air cells. There is near opacification of the right maxillary sinus, the largest mucus retention cyst seen within the left maxillary sinus. There is a small mucus retention cyst seen within the left sphenoid sinus chamber. CT/CT cervical spine wo IV con IMPRESSION: 1. No acute intracranial finding. 2. There is paranasal sinusitis. EXAMINATION: CT CERVICAL SPINE WITHOUT CONTRAST CLINICAL INFORMATION: Pain status-post fall. COMPARISON: None available. TECHNIQUE: Contiguous axial imaging was performed through the cervical spine without intravenous administration of contrast. Multiplanar reformatted images are submitted. This CT examination was performed using dose optimization techniques as appropriate, variously including the following: *Automated exposure control *Adjustment of mA and/or kV according to patient size (this includes techniques or standardized protocols for targeted exams where dose is matched to indication/reason for exam; i.e. extremities or head) *Use of iterative reconstruction technique DLP: As above FINDINGS: Vertebral body heights and alignment are normal. At C3-C4 and C4-C5, there is moderately severe disc space narrowing, with vacuum disc phenomenon. At C6-C7, there is marked disc space narrowing, with vacuum disc phenomenon. No acute fracture or spondylolisthesis is seen. There is multi-level cervical endplate arthropathy. The posterior elements are intact. There is no prevertebral soft tissue swelling. The dens is intact. The bilateral lung apices are clear. IMPRESSION: 1. There is moderately severe degenerative disc disease at C3-C4 and C4-C5, and marked degenerative disc disease seen at C6-C7. 2. No acute fracture or spondylolisthesis is seen. 3. There is multi-level cervical endplate arthropathy. Fleischner guidelines were followed.
[2023-10-17 15:52] VITALS: BP 139/73; PULSE 86; RESP 16; TEMP 36.8; O2SAT 99; BMI 21.9
--- NOTE | 2023-10-17 16:33 | ED_ITS ---
HPI - Head Injury General Chief complaint: Head Injury Stated complaint: head pain after ceiling collapsed on him Time Seen by Provider: 10/17/23 15:57 Source: patient and EMS Mode of arrival: EMS Limitations: no limitations History of Present Illness ED Provider: Rosie Villa PA-C HPI Narrative: 68 yo male With a history of kidney stone, BPH, borderline diabetes who presents to the ER for evaluation a head laceration and right shoulder pain after a a piece of sheet rock [place] off of the skin onto his head. Did not lose consciousness but he states he was dazed when object fell and hit him in the head. He has a slight ache. He on anticoagulation. He denies any neck pain. No chest pain. He would pain in his right shoulder when he abducts it to 180 degrees and palpates the outside of the shoulder. He denies any or tingling in the right arm. MD Complaint: head injury Onset (ago): minute(s) Arrival Conditions: C-spine immobilization present Place: home Loss of Consciousness: no Location of injury: parietal Severity: moderate Severity scale (1-10): 5 Quality: aching Radiation: none Other Injuries: upper extremity Associated symptoms: denies other symptoms Related Data Previous Rx's ?Medication ?Instructions ?Recorded acetaminophen 500 mg tablet 1,000 mg (2 x 500 mg) PO QID PRN 08/10/20 (Tylenol Extra Strength) fever or pain #14 tabs alcohol swabs (Alcohol Prep Pads) 1 pad topical .B.i.d. New onset 08/10/20 diabetes glucose monitoring #100 ea blood sugar diagnostic (FreeStyle #100 ea 08/10/20 Lite Strips) blood-glucose meter (FreeStyle #1 ea 08/10/20 Lite Meter kit) docusate sodium 100 mg capsule 100 mg PO BID Constipation #14 caps 08/10/20 (Colace) lancets 28 gauge (FreeStyle #100 ea 08/10/20 Lancets) metformin 500 mg tablet 500 mg PO DAILY New onset diabetes 08/10/20 #30 tabs omeprazole 40 mg capsule,delayed 40 mg PO DAILY Gastritis #30 caps 08/10/20 release oxycodone 5 mg tablet 5 mg PO BID PRN pain #10 tabs 08/10/20 tamsulosin 0.4 mg capsule (Flomax) 0.4 mg PO DAILY Enlarged prostate 08/10/20 #30 caps finasteride 5 mg tablet 5 mg PO DAILY 90 days #90 tabs 10/28/20 tamsulosin 0.4 mg capsule 0.4 mg PO BEDTIME 90 days #90 caps 10/28/20 polyethylene glycol 3350 17 17 g PO DAILY #510 grams 10/23/21 gram/dose oral powder (Miralax) Allergies Allergy/AdvReac Type Severity Reaction Status Date / Time seafood Allergy Unknown Unknown Verified 10/17/23 15:53 Review of Systems Review of Systems: Yes all other systems are reviewed and are negative [facility] Past Medical History Medical History Borderline diabetic Social History Social History Smoked in Last 30 Days: No Use of substances other than those prescribed or required for medical reasons: No Advance Directives: No Advance Directives Information Provided: No Do you have a plan to hurt others: No Plan Physical Exam 2 Vital Signs: Vital Signs: Last Vital Signs Temp 97.6 F 10/17/23 19:59 Pulse 75 10/17/23 19:59 Resp 16 10/17/23 19:59 BP 140/80 H 10/17/23 19:59 Pulse Ox 98 10/17/23 19:59 O2 Del Method Room Air 10/17/23 19:59 BMI result Body Mass Index 21.9 .Appearance: Alert. Oriented X3. No ac radha distress. Head: normocephalic, Superficial abrasion to the of the head with dried blood. Nontender, no palpable skull depressions, indwelling. Eyes: Pupils equal, round and reactive to light. ENT: Pharynx normal. No tonsillar swelling or exudate. Normal inspection of lateral tympanic membranes Neck: Normal inspection. Neck supple. CVS: Normal heart rate and rhythm. Pulses normal. Respiratory: No respiratory distress. Breath sounds normal. Abdomen: Soft and nontender. +BS x4 Skin: Skin warm and dry. Normal skin color. Normal skin turgor. No rashes. Extremities: No lower extremity edema. No joint swelling. normal inspection of the bilateral upper extremities. Mild generalized tenderness of the entire right shoulder with more passive range of motion. Pain with passive range 180 degrees. Negative empty can test. No scapular tenderness. Neuro/psych: Oriented X 3. No motor deficit. No sensory deficit. CN II-XII intact. Normal speech and cognition. Medications Administered Discontinued Medications Generic Name Dose Route Start Last Admin Trade Name Dung PRN Reason Stop Dose Admin Acetaminophen 975 mg 10/17/23 16:53 10/17/23 16:56 Acetaminophen 325 Mg Tablet PO 10/17/23 16:54 975 mg ONCE ONE Administration Medical Decision Making Medical Decision Making MDM Narrative: 68-year-old male presents to the ER for evaluation after sheet rock fell onto his head causing a laceration with some bleeding. He is not on anticoagulation. He is neurologically intact. Significant injury to the shoulder is suspect. CT of the head and cervical spine were done given his age and were unremarkable for any acute findings. Shoulder x-ray normal. Most likely contusion. stable for d/c home with supportive care. Differential Diagnosis Differential Diagnoses: The differential diagnosis associated with the presentation includes Superficial laceration, concussion, muscle spasm, shoulder contusion, shoulder sprain, broken collarbone Independent Interpretation I performed an independent interpretation of an: Plain X-Ray and CT Scan Interpretation: No brain edema or bleed appreciated, agree with radiology read Normal appearing shoulder, no fracture or dislocation. Radiology Impression Discussion of test interpretation with radiology: I have reviewed the radiologist's reading. Radiologist Impression: XR/XR shoulder RT min 2V IMPRESSION: No radiographic evidence of acute fracture. Possible small focus of calcific tendinitis. Independent Historian Clinical information obtained from an independent historian. History obtained from or confirmed by: EMS External Record Review External record reviewed: Prior outpatient labs and Prior outpatient radiology Prescription Management I considered prescription management with: Pain Medication Critical Care Time Critical Care Time Critical Care Time: No Discharge Plan Discharge Clinical Impression: Closed head injury Qualifiers: Encounter type: initial encounter Qualified Code(s): S09.90XA - Unspecified injury of head, initial encounter Contusion of right shoulder Qualifiers: Encounter type: initial encounter Qualified Code(s): S40.011A - Contusion of right shoulder, initial encounter Patient Disposition: Home, Self-Care Instructions: Head Injury (ED), Shoulder Pain (ED) Additional Instructions: Your CT scan and x-ray today did not show any fractures Rest and drink plenty of fluids Take motrin and/or tylenol as needed for pain Follow up with your primary care provider. If you develop new or worsening symptoms call 911 or come back to the ER for further evaluation. Prescriptions: No Action metformin 500 mg tablet 500 mg PO DAILY Qty: 30 1RF docusate sodium [Colace] 100 mg capsule 100 mg PO BID Qty: 14 0RF tamsulosin [Flomax] 0.4 mg capsule 0.4 mg PO DAILY Qty: 30 0RF acetaminophen [Tylenol Extra Strength] 500 mg tablet 1,000 mg PO QID PRN (Reason: fever or pain) Qty: 14 0RF oxycodone 5 mg tablet 5 mg PO BID PRN (Reason: pain) Qty: 10 0RF (DME) blood-glucose meter [FreeStyle Lite Meter] Kit See Rx Instructions .ROUTE .MEDSUPPLY Qty: 1 0RF Rx Instructions: As directed (DME) FreeStyle Lite Strips Strip See Rx Instructions .ROUTE .MEDSUPPLY Qty: 100 0RF Rx Instructions: As directed omeprazole 40 mg capsule,delayed release(DR/EC) 40 mg PO DAILY Qty: 30 0RF alcohol swabs [Alcohol Prep Pads] Pads, Medicated 1 pad topical .B.i.d. Qty: 100 0RF (DME) lancets [FreeStyle Lancets] 28 gauge misc See Rx Instructions .ROUTE .MEDSUPPLY Qty: 100 0RF Rx Instructions: As directed polyethylene glycol 3350 [Miralax] 17 gram/dose powder 17 g PO DAILY Qty: 510 0RF tamsulosin 0.4 mg capsule 0.4 mg PO BEDTIME 90 Days Qty: 90 1RF finasteride 5 mg tablet 5 mg PO DAILY 90 Days Qty: 90 1RF Interventions: ED Discharge Assessment Last Done: 10/17/23 19:59 Discharge Date/Time: 10/17/23 20:01 Print Language: B[place]ian
[2023-10-17] MEDS: Acetaminophen 325 MG TABLET 975 MG PO (16:56)
[2023-10-17 19:59] VITALS: BP 140/80; PULSE 75; RESP 16; TEMP 36.4; O2SAT 98
== END 2023-10-17 20:01 | disposition home or self-care (01) ==
PROVIDERS: Emergency Provider Internal Medicine
DX: S09.90XA Unspecified injury of head, initial encounter (principal); S40.011A Contusion of right shoulder, initial encounter; W20.8XXA Other cause of strike by thrown, projected or falling object, initial encounter; Y93.H3 Activity, building and construction; Y92.9 Unspecified place or not applicable; Y99.9 Unspecified external cause status
CPT/HCPCS: 70450; 72125; 73030; 99284

== ENCOUNTER 2023-10-19 11:34 | Emergency (ER) | payer MEDICARE, MEDICAID, SELFPAY ==
[2023-10-19 11:37] VITALS: BP 144/87; PULSE 80; O2SAT 99
--- NOTE | 2023-10-19 11:37 | ECG_ITS ---
Test Reason : syncope Blood Pressure : / mmHG Vent. Rate : 072 BPM Atrial Rate : 072 BPM P-R Int : 166 ms QRS Dur : 072 ms QT Int : 342 ms P-R-T Axes : 143 -26 137 degrees QTc Int : 374 ms Unusual P axis, possible ectopic atrial rhythm Low voltage QRS Inferior infarct , age undetermined Abnormal ECG When compared with ECG of 10-AUG-2020 10:23, Ectopic atrial rhythm has replaced Sinus rhythm Inferior infarct is now Present Nonspecific T wave abnormality now evident in Lateral leads Referred By: Generic ED Physician Electronically Signed By:MANJINDER WOOD MD
[2023-10-19 11:39] VITALS: BP 147/80; PULSE 67; RESP 18; TEMP 36.9; O2SAT 99; BMI 23.6
[2023-10-19 11:43] VITALS: BP 147/80; PULSE 67; RESP 18; TEMP 36.9; O2SAT 99
--- NOTE | 2023-10-19 11:44 | ECG_ITS ---
Test Reason : syncope Blood Pressure : / mmHG Vent. Rate : 082 BPM Atrial Rate : 082 BPM P-R Int : 164 ms QRS Dur : 070 ms QT Int : 366 ms P-R-T Axes : 066 -11 055 degrees QTc Int : 427 ms Normal sinus rhythm Normal ECG When compared with ECG of 19-OCT-2023 11:37, Sinus rhythm has replaced Ectopic atrial rhythm QT has lengthened Referred By: Ingrid Cao Electronically Signed By:MANJINDER WOOD MD
[2023-10-19 12:56] LABS: Basophils Absolute Auto 0.1 X10*3/uL (0.0-0.2); Basophils Percent Auto 0.6 % (0-2); Eosinophils Absolute Auto 0.2 X10*3/uL (0.0-0.4); Eosinophils Percent Auto 2.3 % (0-4); Hematocrit 42.9 % (42.0-52.0); Hemoglobin 14.9 g/dl (14.0-18.0); Imm Gran Abs Auto 0.03 X10*3/uL (0.00-0.03); Imm Gran Pct Auto 0.4 % (0.0-0.4); Lymphocytes Absolute Auto 3.7 X10*3/uL (1.2-4.9); Lymphocytes Percent Auto 46.7 % (20-40); MANUAL DIFF FLAG SCAN; Mean Corpuscular HGB Conc 34.7 g/dl (31.0-36.0); Mean Corpuscular Hemoglobin 32.3 pg (27.0-33.0); Mean Corpuscular Volume 93.1 fL (80.0-98.0); Monocytes Absolute Auto 0.5 X10*3/uL (0.1-1.2); Neutrophils Absolute Auto 3.5 x10*3/uL (2.0-8.3); PLT CLUMP 1; Red Blood Count 4.61 X10*6/uL (4.60-5.80); Red Cell Distribution Width 12.6 % (11.0-16.0); SCAN SMEAR FLAG 1
[2023-10-19 13:01] LABS: INTERNATIONAL NORM RATIO 0.9 (0.9-1.1); Prothrombin Time 11.5 SEC (11.1-13.3)
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
[2023-10-19 13:32] LABS: White Blood Count 7.8 X10*3/uL (4.8-10.8)
[2023-10-19 13:34] LABS: SLIDE REVIEW VERIFIED
[2023-10-19 14:00] LABS: Alanine Aminotransferase 8 U/L (0-40); Albumin Level 3.8 g/dL (3.5-5.0); Alkaline Phosphatase 67 U/L (39-117); Anion Gap 9 (12-20); Aspartate Amino Transferase 12 U/L (5-37); Bilirubin Direct 0.1 mg/dL (0.0-0.5); Bilirubin Total 0.3 mg/dL (0.0-1.0); Blood Urea Nitrogen 11 mg/dL (9-16); Calcium 9.3 mg/dL (8.4-10.2); Carbon Dioxide 29 mmol/L (22-29); Chloride 104 mmol/L (96-108); Creatinine Clr Calc Pharmacy 59.5; Estimated Glomerular Filt Rate > 60; Glucose Random 288 mg/dL (60-115); Lipase 60 U/L (8-78); Potassium 4.3 mmol/L (3.3-5.1); Sodium 138 mmol/L (135-145)
[2023-10-19 14:05] LABS: Troponin-I High Sensitivity < 2.7 ng/L (<3.5-35.0)
--- NOTE | 2023-10-19 14:19 | PC.NURSE ---
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 patient ambulated off of unit with steady gait, alert and oritned x4
== END 2023-10-19 14:20 | disposition left against medical advice (07) ==
PROVIDERS: Emergency Provider Emergency Medicine
DX: Z04.3 Encounter for examination and observation following other accident (principal); R42 Dizziness and giddiness; R55 Syncope and collapse; R53.1 Weakness; R20.0 Anesthesia of skin; E11.9 Type 2 diabetes mellitus without complications; Z79.84 Long term (current) use of oral hypoglycemic drugs; Z79.899 Other long term (current) drug therapy
CPT/HCPCS: 36415; 80048; 80076; 83690; 83735; 84484; 85025; 85610; 93005; 99283; 99284

== ENCOUNTER → 2023-10-19 11:37 | Outpatient (BNV) | payer MEDICARE, MEDICAID, SELFPAY | PROVIDERS: Emergency Provider Emergency Medicine; Visit Provider Internal Medicine Cardiovascular Disease | DX: R55 Syncope and collapse (principal) | CPT/HCPCS: 93010 ==

== ENCOUNTER 2024-11-01 16:27 | Inpatient (IN) | payer MEDICARE, MEDICAID, SELFPAY ==
--- NOTE | ~2024-11-01 | MR_ITS ---
CLINICAL HISTORY: r sided weakness, ?cervical cord lesion C5-6 MR cervical spine without gadolinium Comparison: None provided Normal vertebral body alignment. There is multiple level broad-based degenerative disc bulge with marked central canal stenosis from C3 through C6 levels. No acute fractures or pathologic bone lesions. No acute findings on limited view of the intracranial contents. No cervical fluid collections or masses. Cervical cord normal size and signal. IMPRESSION: No acute findings. This document has been electronically signed by: Dhiraj Palma MD on 11/01/2024 21:31:56
--- NOTE | ~2024-11-01 | CT_ITS ---
CLINICAL HISTORY: r sided weakness onset [address] HEAD WITHOUT CONTRAST CTA HEAD WITH CONTRAST, 3D POSTPROCESSING CTA NECK WITH CONTRAST, WITH 3D POSTPROCESSING Comparison: CT/SR - CT HEAD/BRAIN WO IV CON - 10/17/23 16:17 EDT Findings: CT head: No acute intracranial hemorrhage, extra-axial fluid collection, hydrocephalus, or midline shift. Stable atrophy and white matter changes. Several remote lacunar infarcts in the centrum semiovale of the left frontal lobe. No evidence for acute large territorial infarct. Interval resolution of right maxillary sinus opacification. Redemonstration of a lobulated probable retention cysts in the left maxillary sinus. Orbits: Unremarkable as visualized. Calvarium: No fracture. CTA head and neck: Aortic arch: Three-vessel arch with patent branch origins. Vertebral arteries: No occlusion or dissection. Extracranial carotid arteries: No occlusion, flow limiting stenosis, aneurysm, or dissection. Intracranial carotid arteries: No occlusion or flow limiting stenosis. Vertebrobasilar system: Patent. Cerebellar arteries: Patent. Posterior cerebral arteries: Patent. No occlusion or aneurysm. Anterior cerebral arteries: Patent. No occlusion or aneurysm. Middle cerebral arteries: Patent. No occlusion or aneurysm. No enhancing intracranial mass lesion. Dural venous sinuses are patent. No enhancing cervical mass or fluid collection. Thyroid gland appears unremarkable. No acute abnormalities in the included lungs. No acute osseous abnormalities. Impression: 1. No acute intracranial process. 2. Patent CTA head and neck. No large vessel occlusion or flow-limiting stenosis. This document has been electronically signed by: Nati Zhang DO on 11/01/2024 18:44:26
--- NOTE | ~2024-11-01 | MR_ITS ---
EXAMINATION: MR BRAIN WITHOUT CONTRAST CLINICAL INFORMATION: Right-sided weakness. COMPARISON: Correlated to CT brain and CT angiogram brain dated November 01, 2024. TECHNIQUE: MRI of the brain was obtained using routine sequences without contrast. FINDINGS: There is a focal, 1 cm hyperintense T2 FLAIR restricted diffusion signal abnormality within the subcortical white matter of the posterior left frontal pole just inferior to the left precentral gyrus. No acute intracranial hemorrhage, mass effect, midline shift, hydrocephalus or herniation. Bilateral multifocal patchy deep periventricular white matter hyperintense T2 FLAIR signal. Flow-void signal within the main cerebral vessels is normal. Posterior cranial fossa contents demonstrated no signal abnormality or gross masses. Sellar/percent region is normal. Craniocervical junction demonstrates normal position of the cerebellar tonsils. Retention cysts and with a mixed isointense T2 signal within the left maxillary sinus. MR/MR head/brain wo con IMPRESSION: Acute, nonhemorrhagic stroke/ischemia, posterior left frontal subcortical white matter inferior to the left precentral gyrus. Small vessel occlusive disease. Polypoid signal abnormality left maxillary sinus. Recommend direct inspection. Electronically signed by: Trung Andrea MD 11/02/2024 12:45 PM EDT
--- NOTE | ~2024-11-01 | CT_ITS ---
CLINICAL HISTORY: ?evolving CVA, r o bleed CT Brain without contrast Comparison: MR/SR - MR HEAD/BRAIN WO CON - 11/02/24 12:[address]/SR - CT HEAD/BRAIN WO IV CON - 10/17/23 16:17 EDT FINDINGS: Cortical sulci: There is diffuse prominence of the cortical sulci compatible with age-related atrophy. Ventricles: Normal for age Brain parenchyma: There is patchy lucency throughout the deep white matter indicating chronic microvascular leukomalacia. Small infarction of the left posterior frontal lobe series 2, image 36 corresponding to the MRI findings. Extra axial spaces: Normal Posterior Fossa: Normal Extracranial soft tissues: Normal Additional abnormality: Mucous retention cyst in the left maxillary sinus. IMPRESSION: Age-related atrophy with chronic microvascular leukomalacia. Small infarction of the left posterior frontal lobe. No hemorrhage, mass effect, or acute findings identified. This document has been electronically signed by: Derrek River MD on 11/03/2024 14:56:36
[2024-11-01 16:41] VITALS: BP 145/82; PULSE 87; RESP 18; TEMP 36.3; O2SAT 98; BMI 22.5
--- NOTE | 2024-11-01 16:43 | ECG_ITS ---
Test Reason : WEAKNESS Blood Pressure : */* mmHG Vent. Rate : 78 BPM Atrial Rate : 78 BPM P-R Int : 180 ms QRS Dur : 74 ms QT Int : 370 ms P-R-T Axes : 66 -7 53 degrees QTcB Int : 421 ms Normal sinus rhythm Normal ECG When compared with ECG of 19-Oct-2023 11:44, No significant change was found Referred By: Sofie Lang Electronically Signed By: Edwardo La
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
[2024-11-01 17:04] LABS: MANUAL DIFF FLAG NO
[2024-11-01 17:11] LABS: Basophils Absolute Auto 0.1 X10*3/uL (0.0-0.2); Basophils Percent Auto 0.7 % (0-2); Eosinophils Absolute Auto 0.2 X10*3/uL (0.0-0.4); Eosinophils Percent Auto 2.9 % (0-4); Hemoglobin 14.3 g/dl (14.0-18.0); Imm Gran Abs Auto 0.01 X10*3/uL (0.00-0.03); Imm Gran Pct Auto 0.1 % (0.0-0.4); Lymphocytes Absolute Auto 4.1 X10*3/uL (1.2-4.9); Lymphocytes Percent Auto 56.5 % (20-40); Mean Corpuscular HGB Conc 34.9 g/dl (31.0-36.0); Mean Corpuscular Hemoglobin 32.8 pg (27.0-33.0); Mean Platelet Volume 9.4 fL (9.4-12.4); Monocytes Absolute Auto 0.5 X10*3/uL (0.1-1.2); Monocytes Percent Auto 6.3 % (2-11); Neutrophils Absolute Auto 2.5 x10*3/uL (2.0-8.3); Neutrophils Percent Auto 33.5 % (45-73); Platelet Count 199 X10*3/uL (160-400); Red Blood Count 4.36 X10*6/uL (4.60-5.80); Red Cell Distribution Width 12.3 % (11.0-16.0); White Blood Count 7.3 X10*3/uL (4.8-10.8)
[2024-11-01 17:12] LABS: Prothrombin Time 11.6 SEC (10.9-12.4)
[2024-11-01 17:14] LABS: Partial Thromboplastin Time 33.1 SEC (26.0-36.8)
[2024-11-01 17:20] LABS: Alanine Aminotransferase 11 U/L (0-40); Alkaline Phosphatase 57 U/L (39-117); Anion Gap 11 (12-20); Aspartate Amino Transferase 17 U/L (5-37); Bilirubin Total 0.2 mg/dL (0.0-1.0); Blood Urea Nitrogen 12 mg/dL (9-16); Calcium 8.8 mg/dL (8.4-10.2); Carbon Dioxide 26 mmol/L (22-29); Chloride 106 mmol/L (96-108); Creatinine Clr Calc Pharmacy 61.3; Estimated Glomerular Filt Rate > 60; Glucose Random 311 mg/dL (60-115); Magnesium 1.9 mg/dL (1.6-2.6); Potassium 4.2 mmol/L (3.3-5.1); Sodium 139 mmol/L (135-145); Total Protein 6.8 g/dL (6.5-8.0)
[2024-11-01 17:27] LABS: Troponin-I High Sensitivity < 2.7 ng/L (<3.5-35.0)
[2024-11-01] MEDS: iohexoL 350 MG/ML 100 ML INFUS..BTL 70 ML IV (17:50)
[2024-11-01 19:18] VITALS: BP 134/84; PULSE 57; RESP 14; TEMP 36.8; O2SAT 99
[2024-11-01 19:23] LABS: Glucose, Whole Blood 192 mg/dL (60-115)
[2024-11-01 19:25] VITALS: BP 137/84; PULSE 78; RESP 16; TEMP 36.7; O2SAT 100
--- NOTE | 2024-11-01 19:25 | PC.NURSE ---
patient comes in via triage stating he had rt sided weakness that he noticed on tuesday. upon exam this nurse noticed mild weakness to rt arm and rt leg. iv inserted, labs previously drawn/ekg performed, cardiac surgeon applied, pt had CTA performed. pt passed swallow eval. poc obtained, he had no c/o pain or discomfort, pt to have MRI performed, call pan within reach, plan of care ongoing.
--- NOTE | 2024-11-01 19:47 | PC.NURSE ---
Spoke with Dr. Adams and patient is able to go to MRI without cardiac monitoring.
[2024-11-01 22:00] VITALS: BP 154/60; PULSE 78; RESP 18; TEMP 36.8; O2SAT 100
[2024-11-01 23:07] LABS: Glucose, Whole Blood 119 mg/dL (60-115)
[2024-11-01] MEDS: LORazepam 1 MG TABLET PO (23:10)
[2024-11-01] MEDS: Aspirin Enteric Coated 325 MG TABLET.DR PO (23:10)
[2024-11-01 23:17] VITALS: BP 164/74; PULSE 64; RESP 16; O2SAT 99
--- NOTE | 2024-11-01 23:26 | PM.IMHP ---
History of Present Illness Date of Service: 11/01/24 Attending physician on admission: Clifton Tuttle Chief Complaint: R weakness Patient is a 69-year-old male with a past medical history significant for BPH, kidney stones, diabetes, chronic cervical spine issues, who presented to the ED due to right-sided leg weakness and right upper extremity weakness starting 3 days ago. The patient reports that he woke Tuesday morning and was unable to lift his right leg. He thought if he gave it time that it would get better however it has not improved. He also reports right-sided arm weakness and decreased digital media representative strength. He has had multiple falls including head strike and loss of consciousness, last 2 days ago. He also describes some occipital head pressure. He states that he did not seek medical care as he did not have anybody to watch his 8-year-old son. He denies any nausea, vomiting, chest pain, shortness of breath or urinary symptoms including frequency, urgency or dysuria. Review of Systems Constitutional: Constitutional: Denies body ache(s), Denies chills, Denies fatigue, Denies fever(s), Reports frequent falls and Reports headache(s) Eyes: Eyes: Denies change in vision and Denies loss of vision ENT: Reports headache(s), Denies nasal congestion and Denies sore throat Cardiovascular: Cardiovascular: Denies chest pain, Denies rapid heart rate, Denies leg edema, Denies lightheadedness and Denies dyspnea Respiratory: Respiratory: Denies chest congestion, Denies cough, Denies dyspnea and Denies wheezing Gastrointestinal: Gastrointestinal: Denies abdominal pain, Denies diarrhea and Denies vomiting Genitourinary: Genitourinary: Denies dysuria, Denies urinary incontinence and Denies urinary urgency Musculoskeletal: Musculoskeletal: Reports muscle weakness Integumentary/Breasts: Skin/Breast: Denies rash Neurologic: Denies confusion, Reports frequent falls, Reports headache(s) and Denies loss of vision Psychiatric: Psychiatric: Denies confusion Endocrine: Endocrine: Denies fatigue Hematologic/Lymphatic: Hematologic/Lymphatic: Denies easy bleeding and Denies easy bruising Allergic/Immunologic: Allergic/Immunologic: Denies wheezing [facility], [facility] Medical History (Updated 11/01/24 @ 23:36 by Franci Álvarez PA-C) BPH w urinary obs/LUTS Nephrolithiasis Borderline diabetic Functional capacity: independent ambulation Social History Alcohol intake: current Alcohol intake frequency: holidays/special occasions only Alcohol type: beer Smoked in Last 30 Days: Yes Use of substances other than those prescribed or required for medical reasons: No Advance Directives: No Advance Directives Information Provided: Yes Do you have a plan to hurt others: No Plan Narrative: Smokes 1 black and mild daily, occasional social alcohol, no drug use Meds Allergies Allergy/AdvReac Type Severity Reaction Status Date / Time seafood Allergy Unknown Unknown Verified 11/01/24 16:43 Active Medications: Current Medications Dextrose (Dextrose 50 % 25 Gm/50 Ml Syringe) 25 gm IVPUSH Q15M PRN; Protocol PRN Reason: per Hypoglycemia Standing Ord. Glucose (Glucose Gel 15 Gm Gel..Gram.) 15 gm PO Q15M PRN; Protocol PRN Reason: per Hypoglycemia Standing Ord. Insulin Human Lispro (Insulin Lispro 100 Unit/Ml 3 Ml Vial) 0 unit SUBCUT [facility]; Protocol Physical Exam Vital Signs and Narrative: Vital Signs: Last Vital Signs Temp 98.2 F 11/01/24 22:00 Pulse 64 11/01/24 23:17 Resp 16 11/01/24 23:17 BP 164/74 H 11/01/24 23:17 Pulse Ox 99 11/01/24 23:17 O2 Del Method Room Air 11/01/24 23:17 BMI result Body Mass Index 22.5 General: AOx3, no acute distress Resp: CTA bilaterally CVS: S1, S2, RRR GI: +BS, NT, no distention Skin: Warm, dry Neuro: Cranial nerves II-XII grossly intact bilaterally. 1/5 strength RLE, 2-3/5 RUE strength including digital media representative strength. sensation intact throughout. LLE and LUE strength 5/5 throughout. Extremities: No LE edema Psych: Appropriate affect Const: General: No confusion Orientation/consciousness: No confusion Neuro: General: No confusion Results Labs 11/01/24 16:59 11/01/24 16:59 Labs: Laboratory Results - last 24 hr 11/01/24 11/01/24 11/01/24 16:59 19:20 23:03 MCV 94.0 MCH 32.8 MCHC 34.9 RDW 12.3 Plt Count 199 MPV 9.4 Immature Gran % (Auto) 0.1 Neut % (Auto) 33.5 L Lymph % (Auto) 56.5 H [place] % (Auto) 6.3 Eos % (Auto) 2.9 Baso % (Auto) 0.7 Lymph # (Auto) 4.1 [place] # (Auto) 0.5 Eos # (Auto) 0.2 Baso # (Auto) 0.1 Abs Immat Gran (auto) 0.01 Absolute Neuts (auto) 2.5 Absolute Nucleated RBC 0.000 Nucleated RBC % (auto) 0.0 PT 11.6 INR 1.0 APTT 33.1 Anion Gap 11 L Estim Creat Clear Calc 61.3 Estimated GFR > 60 POC Glucose 192 H 119 H Random Glucose 311 H Calcium 8.8 Magnesium 1.9 Total Bilirubin 0.2 AST 17 ALT 11 Alkaline Phosphatase 57 Troponin I High Sens < 2.7 Total Protein 6.8 Albumin 4.0 Assessment and Plan (1) CVA (cerebral vascular accident): Status: Acute (2) Right sided weakness: Status: Acute Plan Patient is a 69-year-old male with a past medical history significant for BPH, kidney stones, diabetes, chronic cervical spine issues, who presented to the ED due to right-sided leg weakness and right upper extremity weakness starting 3 days ago. CVA with R sided weakness - head CT with several remote lacunar infarcts in the centrum of the left frontal lobe - CTA head and neck patent - MRI C-spine due to multiple falls without acute findings - EKG with NSR - troponin negative - lipid panel pending - UA ordered - given ASA 325 mg in ED, continue 81 mg daily - start atorvastatin 80 mg nightly - MRI head/brain in a.m. - echo with bubble study in a.m. - PT/OT eval - passed bedside swallow screen with nurse - neuro consult - neuro checks q.2h - monitor on tele T2DM - check A1C - sliding scale insulin - hold metformin - diabetic diet BPH - continue flomax chronic neck pain - CT c-spine with multiple-level broad-based degenerative disc bulge with marked central canal stenosis from C3 through C6 levels. No acute fractures or pathologic bone lesions. - continue oxycodone prn for pain med rec pending full code VTE prophy: lovenox Patient with acute CVA with residual right-sided weakness, requiring admission for at least 2 midnights stay for further evaluation, neurology consultation and monitoring. Quality Stroke Does the patient have a stroke diagnosis?: Yes Reason for No Anti-thrombotic by Day Two: Drug treatment not indicated VTE Prior VTE?: No VTE Risk Level:: Medical - moderate - high VTE Device Contraindication: Treatment Not Indicated VTE Drug Contraindication: N/A - Med Ordered
[2024-11-01 23:48] LABS: Cholesterol 168 mg/dL (<200); HDL Cholesterol 41 mg/dL (>40); LDL Cholesterol Calculated 107 mg/dL (<100); Triglycerides 100 mg/dL (<150)
[2024-11-02] VITALS (10 sets, daily range): BP systolic 114–167; BP diastolic 55–87; PULSE 62–98; RESP 16–20; TEMP 36–36.9; O2SAT 95–100; BMI 22.8
[2024-11-02 01:11] LABS: Appearance Urine Clear; Color Urine Yellow; Glucose Urine UA Negative (Negative); Leukocyte Esterase Urine Negative (Negative); Nitrite Urine Negative (Negative); PH 7.5 (5.0-9.0); Urine Blood Negative (Negative); Urine Ketones Negative (Negative); Urine Protein Trace mg/dL (Neg-Trace)
[2024-11-02 01:21] LABS: Amphetamine Screen Urine Not Detected (Not Detect); Barbiturates, Urine Not Detected (Not Detect); Benzodiazepines Screen Urine Not Detected (Not Detect); Buprenorphine Scr Not Detected (Not Detect); Cannabinoid Screen Urine Not Detected (Not Detect); Cocaine Screen Urine Not Detected (Not Detect); Fentanyl, urine Not Detected (Not Detect); Methadone Screen, Urine Not Detected (Not Detect); Opiate Screen Urine Not Detected (Not Detect); Oxycodone Screen Urine Not Detected (Not Detect); Phencyclidine Screen Urine Not Detected (Not Detect)
[2024-11-02 06:02] LABS: Estimated Average Glucose 212 mg/dL; Total Hemoglobin (HGBA1C) 3722.9294 umol/L
--- NOTE | 2024-11-02 07:00 | CA_ITS ---
Transthoracic Echocardiogram Patient (Last, First, Middle): Shawn Shepard A Gender: Male Date of : 1955 Age: 69 Procedure Date: 11/02/2024 Procedure Type: Transthoracic Echocardiogram Location: [facility] [place] Height: 172.72 cm Weight: 67.13 kg BSA: 1.80 m2 Heart Rate: bpm BP: 114 / 62 mmHg Otter Trawler Boatswain: ANGEL Referring MD: Franci Álvarez PA-C Symptoms: CVA Study Quality: Adequate ECG Rhythm: Sinus Conclusions: - Normal left ventricular size and systolic function. There is mildly increased left ventricular wall thickness. The visually estimated ejection fraction is between 55-60%. There is no evidence of regional wall motion abnormalities. Diastolic function is normal for age. - Normal right ventricular cavity size and systolic function. - There is no evidence of interatrial shunt by agitated saline. Findings Left Ventricle Normal left ventricular size and systolic function. There is mildly increased left ventricular wall thickness. The visually estimated ejection fraction is between 55-60%. There is no evidence of regional wall motion abnormalities. Diastolic function is normal for age. Right Ventricle Normal right ventricular cavity size and systolic function. Atria The left atrium is normal in size. There is no evidence of interatrial shunt by agitated saline. The right atrium is normal in size. Aortic Valve Normal aortic valve structure and function. There is no aortic valve stenosis. There is no aortic valve regurgitation. Mitral Valve Normal mitral valve structure and function. There is no mitral valve regurgitation. There is no mitral valve stenosis. Pulmonic Valve The pulmonic valve is likely normal. Tricuspid Valve Normal tricuspid valve structure. There is trace tricuspid valve regurgitation. Normal right atrial pressure. There is no evidence of pulmonary hypertension. Great Vessels All visible segments of the aorta are normal in size. The visualized portions of the pulmonary artery and branches are normal. Venous The inferior vena cava is normal in size and collapses greater than 50% with inspiration. Pericardium/Pleural There is no evidence of pericardial effusion. Prior Study Comparison No prior study available for comparison. Measurements 2D Linear Measurements IVSd: 1.23 0.6-0.9/0.6-1.0 cm LVIDd: 4.34 3.9-5.3/4.2-5.9 cm LVIDd Index: 2.41 2.4-3.2/2.2-3.1 cm/m2 LVIDs: 2.91 2.0-3.6 cm LVPWd: 1.21 0.7-1.1 cm Ao Root: 3.60 2.1-3.5 cm LA Diam: 3.20 2.7-3.8/3.0-4.0 cm LAIDs Index: 1.78 1.5-2.3 cm/m2 LV Mass: 239.12 67-162/88-224 g LV Mass Index: 132.84 43-95/49-115 g/m2 LVOT Diam: 2.10 3.0+(-)1.3 cm 2D Systolic Function EF 4C: 60.60 >55% EF 2C: 55.60 >55% EF BiP: 58.40 >55% Mitral Valve MV Pk E: 0.66 MV PK A: 0.70 MV Decel Time: 171.00 E/A: 0.90 E'Lateral: 8.70 E'Medial: 7.40 E/E' Med: 8.90 E/E' Lat: 7.60 PHT: 50.00 MVA PHT: 4.40 Decel Ector: 3.85 Aortic Valve AoV Pk Yadiel: 0.92 AoV Mn Yadiel: 0.60 AoV VTI: 0.24 AoV Pk Grad: 3.00 Aov Mn Grad: 2.00 ADRIANA Cont.VTI: 2.40 LVOT LVOT Pk Yadiel: 0.61 LVOT Mn Yadiel: 0.40 LVOT VTI: 0.17 LVOT Pk Grad: 2.00 LVOT Mn Grad: 1.00 LVOT Diam: 2.10 LVOT Area: 3.46 Diastolic Function MV Pk E: 0.66 MV Pk A: 0.70 E/A: 0.90 E'Medial: 7.40 E/E' Med: 8.90 E' Laterial: 8.70 E/E' Lat: 7.60 Tricuspid Valve TR Pk Yadiel: 2.24 TR Pk Grad: 20.00 RA Press: 3.00 RVSP: 23.00 Great Vessels Aorta Ao Root-2D: 3.60 2.0-3.7 cm Ao Asc: 3.40 2.1-3.4 cm Pulmonary Valve PV Pk Yadiel: 0.76 Peak PV Grad: 2.00 Updated in Other Vendor System with Status of Final Edwardo La MD electronically signed on 11/02/2024 9:21:32 PM with status of Final
[2024-11-02 07:04] LABS: Hematocrit 43.5 % (42.0-52.0); Hemoglobin 15.2 g/dl (14.0-18.0); Mean Corpuscular HGB Conc 34.9 g/dl (31.0-36.0); Mean Corpuscular Hemoglobin 33.4 pg (27.0-33.0); Mean Corpuscular Volume 95.6 fL (80.0-98.0); PLT CLUMP 1; Red Blood Count 4.55 X10*6/uL (4.60-5.80); Red Cell Distribution Width 12.5 % (11.0-16.0)
[2024-11-02 07:07] LABS: Glucose, Whole Blood 172 mg/dL (60-115)
[2024-11-02 07:09] LABS: Anion Gap 10 (12-20); Blood Urea Nitrogen 10 mg/dL (9-16); Calcium 8.5 mg/dL (8.4-10.2); Carbon Dioxide 21 mmol/L (22-29); Chloride 109 mmol/L (96-108); Creatinine Clr Calc Pharmacy 70.9; Estimated Glomerular Filt Rate > 60; Glucose Random 203 mg/dL (60-115); Potassium 4.5 mmol/L (3.3-5.1); Sodium 135 mmol/L (135-145)
[2024-11-02] MEDS: Aspirin Enteric Coated 81 MG TABLET.DR PO (07:19)
[2024-11-02] MEDS: Insulin Lispro 100 UNIT/ML 3 ML VIAL SUBCUT ×3 (07:19→21:01)
[2024-11-02] MEDS: 0.9 % Sodium Chloride Flush 3 ML SYRINGE IVFLUSH ×3 (07:21→20:14)
--- NOTE | 2024-11-02 07:30 | PC.NURSE ---
pt a&ox3, vss, pt sitting up in room eating breakfast, monitoring analyst intact- sinus bethanie on monitor. pt continues to have RUE/RLE mild weakness in comparison to left, pts smile is symmetrical, neuros otherwise intact. rr equal/non labored, lungs clear, pt denies pain/discomfort at this time, pt to have brain MRI today- MRI form was filled out previously. call pan within reach, plan of care ongoing.
[2024-11-02 07:48] LABS: White Blood Count 6.2 X10*3/uL (4.8-10.8)
--- NOTE | 2024-11-02 08:17 | HO.PM.IMPN ---
Subjective Subjective Date of Service: 11/02/24 Interval History: Continued right-sided weakness especially in the leg Mild headache Denies acute vision changes No dysarthria or difficulty word finding Denies SOB No chest pain Has not followed with a PCP in many years Review of Systems Negative except for that which is stated in the HPI Physical Exam Vital Signs: Vital Signs: Last Vital Signs Temp 97.3 F 11/02/24 08:00 Pulse 71 11/02/24 08:00 Resp 20 11/02/24 08:00 BP 136/67 11/02/24 08:00 Pulse Ox 99 11/02/24 08:00 O2 Del Method Room Air 11/02/24 08:00 BMI result Body Mass Index 22.5 General: AOx3, no acute distress Resp: CTA bilaterally CVS: S1, S2, RRR GI: +BS, NT, no distention Skin: Warm, dry Neuro: Face symmetric, speech fluent. Visual morton appear full and intact. Slight positive right pronator drift. RUE 4/5 strength; RLE 2/5 strength. Diminished right-sided sensation to light touch. Extremities: No edema Psych: Appropriate affect Objective Data Active Medications Acetaminophen (Acetaminophen 325 Mg Tablet) 975 mg PO Q6H PRN PRN Reason: Pain, Mild 1-3,fever,headache Aspirin (Aspirin Enteric Coated 81 Mg Tablet.) 81 mg PO DAILY [facility] Last Admin: 11/02/24 07:19 Dose: 81 mg Documented By: JON Atorvastatin Calcium (Atorvastatin Calcium 80 Mg Tablet) 80 mg PO BEDTIME [facility] Last Admin: 11/02/24 01:53 Dose: Not Given Documented By: RAMBO Non-Admin Reason: Patient Asleep Calcium Carbonate (Calcium Carbonate 750 Mg Tab.Chew) 750 mg PO Q4H PRN PRN Reason: Heartburn Dextrose (Dextrose 50 % 25 Gm/50 Ml Syringe) 25 gm IVPUSH Q15M PRN; Protocol PRN Reason: per Hypoglycemia Standing Ord. Enoxaparin Sodium (Enoxaparin Sodium 40 Mg/0.4 Ml Syringe) 40 mg SUBCUT Q24H [facility] Last Admin: 11/02/24 01:53 Dose: Not Given Documented By: RAMBO Non-Admin Reason: Patient Asleep Glucose (Glucose Gel 15 Gm Gel..Gram.) 15 gm PO Q15M PRN; Protocol PRN Reason: per Hypoglycemia Standing Ord. Insulin Human Lispro (Insulin Lispro 100 Unit/Ml 3 Ml Vial) 0 unit SUBCUT QIDACHS [facility]; Protocol Last Admin: 11/02/24 07:19 Dose: 2 unit Documented By: JON Magnesium Hydroxide (Milk Of Magnesia 30 Ml Oral.Susp) 30 ml PO DAILY PRN PRN Reason: Constipation Melatonin (Melatonin 3 Mg Tablet) 6 mg PO BEDTIME PRN PRN Reason: Insomnia Ondansetron HCl (Ondansetron Hcl 4 Mg/2 Ml Vial) 4 mg IVPUSH Q8H PRN PRN Reason: Nausea and Vomiting Oxycodone HCl (Oxycodone Hcl Immed Release 5 Mg Tablet) 5 mg PO Q6H PRN PRN Reason: Pain, Moderate(Pain Scale 4-6) Sodium Chloride (0.9 % Sodium Chloride Flush 3 Ml Syringe) 3 ml IVFLUSH [facility] Last Admin: 11/02/24 07:21 Dose: 3 ml Documented By: JON Labs 11/02/24 06:53 11/02/24 06:53 Labs: Laboratory Results - last 24 hr 11/01/24 11/01/24 11/01/24 16:59 19:20 23:03 MCV 94.0 MCH 32.8 MCHC 34.9 RDW 12.3 Plt Count 199 MPV 9.4 Immature Gran % (Auto) 0.1 Neut % (Auto) 33.5 L Lymph % (Auto) 56.5 H [place] % (Auto) 6.3 Eos % (Auto) 2.9 Baso % (Auto) 0.7 Lymph # (Auto) 4.1 [place] # (Auto) 0.5 Eos # (Auto) 0.2 Baso # (Auto) 0.1 Abs Immat Gran (auto) 0.01 Absolute Neuts (auto) 2.5 Absolute Nucleated RBC 0.000 Nucleated RBC % (auto) 0.0 PT 11.6 INR 1.0 APTT 33.1 Anion Gap 11 L Estim Creat Clear Calc 61.3 Estimated GFR > 60 POC Glucose 192 H 119 H Random Glucose 311 H Estimat Average Glucose 212 Hemoglobin A1c % 9.0 H Calcium 8.8 Magnesium 1.9 Total Bilirubin 0.2 AST 17 ALT 11 Alkaline Phosphatase 57 Troponin I High Sens < 2.7 Total Protein 6.8 Albumin 4.0 Triglycerides 100 Cholesterol 168 LDL Cholesterol, Calc 107 H HDL Cholesterol 41 Urine Color Urine Appearance Urine pH Ur Specific [place] Urine Protein Urine Glucose (UA) Urine Ketones Urine Blood Urine Nitrite Ur Leukocyte Esterase Urine Opiates Screen Ur Buprenorphine Scrn Ur Oxycodone Screen Urine Methadone Screen Urine Fentanyl Screen Ur Barbiturates Screen Ur Phencyclidine Scrn Ur Amphetamines Screen U Benzodiazepines Scrn Urine Cocaine Screen U Marijuana (THC) Screen 11/02/24 11/02/24 11/02/24 00:58 06:53 07:04 MCV 95.6 MCH 33.4 H MCHC 34.9 RDW 12.5 Plt Count TNP MPV TNP Immature Gran % (Auto) Neut % (Auto) Lymph % (Auto) [place] % (Auto) Eos % (Auto) Baso % (Auto) Lymph # (Auto) [place] # (Auto) Eos # (Auto) Baso # (Auto) Abs Immat Gran (auto) Absolute Neuts (auto) Absolute Nucleated RBC 0.000 Nucleated RBC % (auto) 0.0 PT INR APTT Anion Gap 10 L Estim Creat Clear Calc 70.9 Estimated GFR > 60 POC Glucose 172 H Random Glucose 203 H Estimat Average Glucose Hemoglobin A1c % Calcium 8.5 Magnesium Total Bilirubin AST ALT Alkaline Phosphatase Troponin I High Sens Total Protein Albumin Triglycerides Cholesterol LDL Cholesterol, Calc HDL Cholesterol Urine Color Yellow Urine Appearance Clear Urine pH 7.5 Ur Specific [place] 1.020 Urine Protein Trace Urine Glucose (UA) Negative Urine Ketones Negative Urine Blood Negative Urine Nitrite Negative Ur Leukocyte Esterase Negative Urine Opiates Screen Not Detected Ur Buprenorphine Scrn Not Detected Ur Oxycodone Screen Not Detected Urine Methadone Screen Not Detected Urine Fentanyl Screen Not Detected Ur Barbiturates Screen Not Detected Ur Phencyclidine Scrn Not Detected Ur Amphetamines Screen Not Detected U Benzodiazepines Scrn Not Detected Urine Cocaine Screen Not Detected U Marijuana (THC) Screen Not Detected Assessment and Plan (1) CVA (cerebral vascular accident): Status: Acute (2) Right sided weakness: Status: Acute Plan Patient is a 69-year-old male with a past medical history significant for BPH, kidney stones, diabetes, chronic cervical spine issues, who presented to the ED due to right-sided leg weakness and right upper extremity weakness starting 3 days ago. Pt admitted to the hospital for right sided weakness concerning for acute CVA. CVA with R sided weakness Head CT and CTA of head/neck negative for acute process or stenosis MRI C-spine due to multiple falls without acute findings MRI of head showed Acute, nonhemorrhagic stroke/ischemia, posterior left frontal subcortical white matter inferior to the left precentral gyrus. EKG with NSR Lipid panel with mildly elevated LDL of 107 Given ASA 325 mg in ED, continue 81 mg daily Start atorvastatin 80 mg nightly Echo with bubble study PT/OT eval Neuro consult Monitor on tele T2DM A1C 9.0, denies previous diagnosis Sliding scale insulin Will start metformin Diabetic diet Pt will need follow up outpatient with PCP for diabetes management and monitoring Chronic neck pain CT c-spine with multiple-level broad-based degenerative disc bulge with marked central canal stenosis from C3 through C6 levels. No acute fractures or pathologic bone lesions. Continue oxycodone prn for pain Full code VTE prophy: lovenox Requires continued hospitalization due to acute CVA requiring neurologic and cardiac monitoring, as well as additional specialist consultation and safe disposition. Quality Stroke Does the patient have a stroke diagnosis?: Yes Reason for No Anti-thrombotic by Day Two: Drug treatment not indicated (Pt will be given aspirin, but outside of tNK therapeutic window.) VTE Prior VTE?: No VTE Risk Level:: Medical - moderate - high VTE Device Contraindication: Treatment Not Indicated VTE Drug Contraindication: N/A - Med Ordered
--- NOTE | 2024-11-02 11:02 | PHA.MEDREC ---
Addendum entered by Jerel Clayton [facility] 11/02/24 11:14: MED REC CHECKED BY [facility] Original Note: Pharmacy Consult ? Medication Reconciliation Pharmacy has completed the medication reconciliation. Spoke with pt and he confirmed he is only taking OTC medications at this time: Acetaminophen 500mg, Aspirin 325mg, Remi-Mag-Zin Combo Med, Multivitamin and a Vitamin D3 and Vitamin B-12 that he did not remember the dosages to at this time.
[2024-11-02] MEDS: Enoxaparin Sodium 40 MG/0.4 ML SYRINGE SUBCUT (11:43)
--- NOTE | 2024-11-02 11:55 | PC.NURSE ---
pt headed to MRI
[2024-11-02 13:22] LABS: Glucose, Whole Blood 109 mg/dL (60-115)
--- NOTE | 2024-11-02 14:26 | PC.NURSE ---
appointment coordinator Zully Maddox came to the ED, the daughter had left by the time of her arrival. Daughter Collette who is a nurse at [employer] asked that we call her with the results of the MRI. This nurse called when the results were available. Daughter plans to return to the ED when she has her children situated in hopes to speak with the hospitalist.
--- NOTE | 2024-11-02 14:35 | PC.NURSE ---
stroke education performed with the patient, when daughter returns, will also speak with daughter about the stroke education that was given to the patient. if needed additional pamphlet will be given to family.
--- NOTE | 2024-11-02 16:50 | PC.NURSE ---
daughter was called and updated for the patients room
[2024-11-02 17:45] LABS: Glucose, Whole Blood 183 mg/dL (60-115)
[2024-11-02] MEDS: Atorvastatin Calcium 80 MG TABLET PO (20:09)
[2024-11-02] MEDS: Nicotine 14 MG PATCH.TD24 TRANSDERMA (20:09)
[2024-11-02 20:43] LABS: Glucose, Whole Blood 271 mg/dL (60-115)
[2024-11-03] VITALS (9 sets, daily range): BP systolic 127–160; BP diastolic 59–80; PULSE 60–88; RESP 16–18; TEMP 36.1–36.8; O2SAT 94–100
[2024-11-03] MEDS: Acetaminophen 325 MG TABLET 975 MG PO (02:08)
[2024-11-03 07:24] LABS: Hematocrit 41.9 % (42.0-52.0); Hemoglobin 14.4 g/dl (14.0-18.0); Mean Corpuscular HGB Conc 34.4 g/dl (31.0-36.0); Mean Corpuscular Hemoglobin 32.1 pg (27.0-33.0); Mean Corpuscular Volume 93.3 fL (80.0-98.0); Mean Platelet Volume 9.9 fL (9.4-12.4); Platelet Count 200 X10*3/uL (160-400); Red Blood Count 4.49 X10*6/uL (4.60-5.80); White Blood Count 7.3 X10*3/uL (4.8-10.8)
[2024-11-03 07:27] LABS: Glucose, Whole Blood 180 mg/dL (60-115)
[2024-11-03 07:36] LABS: Anion Gap 9 (12-20); Blood Urea Nitrogen 17 mg/dL (9-16); Calcium 8.7 mg/dL (8.4-10.2); Carbon Dioxide 25 mmol/L (22-29); Chloride 107 mmol/L (96-108); Creatinine Clr Calc Pharmacy 73.3; Estimated Glomerular Filt Rate > 60; Glucose Random 169 mg/dL (60-115); Sodium 137 mmol/L (135-145)
[2024-11-03] MEDS: Multivitamin TABLET 1 TAB PO (07:52)
[2024-11-03] MEDS: Nicotine 14 MG PATCH.TD24 TRANSDERMA (07:53)
[2024-11-03] MEDS: Insulin Lispro 100 UNIT/ML 3 ML VIAL SUBCUT ×3 (07:53→16:53)
[2024-11-03] MEDS: Aspirin Enteric Coated 81 MG TABLET.DR PO (07:53)
[2024-11-03] MEDS: 0.9 % Sodium Chloride Flush 3 ML SYRINGE IVFLUSH ×3 (07:56→20:40)
--- NOTE | 2024-11-03 09:43 | MHC.CM.PN ---
Addendum entered by Kamryn Wilkins 11/03/24 10:42: Pt.'s dtr works at [facility], that is first choice Addendum entered by Kamryn Wilkins 11/03/24 09:47: Pt. said he completed HCP form here yesterday, naming his dtrs: Collette and Orly. Original Note: IMM 11/03/24, Pt. lives with his 2 sons, he does not have a PCP, brochure given. He does not use DME, or home care services. DCP is acute rehab, CM discussed this with pt., he said his dtr is an RN and works at a rehab, he will let us know which one. Referrals out to [place]. [facility]ENZIE will continue to assist with DCP.
[2024-11-03 11:15] LABS: Glucose, Whole Blood 304 mg/dL (60-115)
[2024-11-03] MEDS: Enoxaparin Sodium 40 MG/0.4 ML SYRINGE SUBCUT (12:10)
[2024-11-03 13:35] LABS: Glucose, Whole Blood 293 mg/dL (60-115)
[2024-11-03 14:20] LABS: Hematocrit 41.8 % (42.0-52.0); Hemoglobin 14.8 g/dl (14.0-18.0); Mean Corpuscular HGB Conc 35.4 g/dl (31.0-36.0); Mean Corpuscular Hemoglobin 32.7 pg (27.0-33.0); Mean Corpuscular Volume 92.5 fL (80.0-98.0); Mean Platelet Volume 9.1 fL (9.4-12.4); Platelet Count 203 X10*3/uL (160-400); Red Blood Count 4.52 X10*6/uL (4.60-5.80); Red Cell Distribution Width 12.3 % (11.0-16.0); White Blood Count 7.2 X10*3/uL (4.8-10.8)
[2024-11-03 14:22] LABS: Venous Blood Gas Refer to POC result
[2024-11-03 14:23] LABS: VBG Base Excess 5.3 mmol/L; VBG HCO3 30 mmol/L (22-26); VBG pCO2 48 mmHg; VBG pH 7.41 (7.32-7.43); VBG pO2 27 mmHg
[2024-11-03 14:35] LABS: Alanine Aminotransferase 12 U/L (0-40); Albumin Level 3.9 g/dL (3.5-5.0); Alkaline Phosphatase 62 U/L (39-117); Anion Gap 11 (12-20); Aspartate Amino Transferase 12 U/L (5-37); Bilirubin Total 0.2 mg/dL (0.0-1.0); Blood Urea Nitrogen 17 mg/dL (9-16); Calcium 9.5 mg/dL (8.4-10.2); Carbon Dioxide 29 mmol/L (22-29); Chloride 105 mmol/L (96-108); Creatinine Clr Calc Pharmacy 63.8; Estimated Glomerular Filt Rate > 60; Glucose Random 189 mg/dL (60-115); Potassium 4.4 mmol/L (3.3-5.1); Sodium 141 mmol/L (135-145); Total Protein 6.8 g/dL (6.5-8.0)
[2024-11-03 14:36] LABS: Lactic Acid 1.7 mmol/L (0.5-2.0)
[2024-11-03 15:29] LABS: Glucose, Whole Blood 228 mg/dL (60-115)
--- NOTE | 2024-11-03 16:22 | HO.PM.IMPN ---
Subjective Subjective Date of Service: 11/03/24 Interval History: Notified by nursing that during PT evaluation today pt was noted to be significantly more weak on his right side. Evaluated pt and found him to be slow to respond, unable to move right leg, and with uncoordinated right arm movements, positive right pronator drift, eyes not tracking, staring off into space, and complaining of headache and blurry vision. Episode lasted around 15 minutes before mentation started to slowly improve. VBG, CBC, CMP, POC, and lactic acid all unremarkable. Repeat CT of head negative for hemorrhage, mass effect, or acute findings, though redemonstrated age-related atrophy with chronic microvascular leukomalacia and small infarction in left posterior frontal lobe. Contacted Neurology via text who thought change in status likely secondary to seizure disorder. Pt was given empiric Keppra 500 mg IV Review of Systems Review of Systems: Yes all other systems are reviewed and are negative Physical Exam Vital Signs: Vital Signs: Last Vital Signs Temp 97.7 F 11/04/24 15:37 Pulse 74 11/04/24 15:37 Resp 16 11/04/24 15:37 BP 121/61 11/04/24 15:37 Pulse Ox 97 11/04/24 15:37 O2 Del Method Room Air 11/04/24 15:37 BMI result Body Mass Index 22.8 General: Awake and alert, slow to respond, appears drowsy and weak, at times unfocused, staring into space. Resp: CTA bilaterally CVS: S1, S2, RRR GI: +BS, NT, no distention Skin: Warm, dry Neuro: Pt is slow to respond, occasionally not answering questions, other times he answering appropriately. Positive right pronator drift. pt unable to track with eyes. Strength 2 out of 5 of RUL PE, 0/5 of RLE. Extremities: No edema Objective Data Active Medications Acetaminophen (Acetaminophen 325 Mg Tablet) 975 mg PO Q6H PRN PRN Reason: Pain, Mild 1-3,fever,headache Last Admin: 11/04/24 11:52 Dose: 975 mg Documented By: TRAV Aspirin (Aspirin Enteric Coated 81 Mg Tablet.) 81 mg PO DAILY [facility] Last Admin: 11/04/24 09:25 Dose: 81 mg Documented By: TRAV Atorvastatin Calcium (Atorvastatin Calcium 40 Mg Tablet) 40 mg PO BEDTIME [facility] Last Admin: 11/03/24 20:39 Dose: 40 mg Documented By: LYNN Calcium Carbonate (Calcium Carbonate 750 Mg Tab.Chew) 750 mg PO Q4H PRN PRN Reason: Heartburn Dextrose (Dextrose 50 % 25 Gm/50 Ml Syringe) 25 gm IVPUSH Q15M PRN; Protocol PRN Reason: per Hypoglycemia Standing Ord. Enoxaparin Sodium (Enoxaparin Sodium 40 Mg/0.4 Ml Syringe) 40 mg SUBCUT Q24H [facility] Last Admin: 11/04/24 11:49 Dose: 40 mg Documented By: TRAV Glucose (Glucose Gel 15 Gm Gel..Gram.) 15 gm PO Q15M PRN; Protocol PRN Reason: per Hypoglycemia Standing Ord. Insulin Human Lispro (Insulin Lispro 100 Unit/Ml 3 Ml Vial) 0 unit SUBCUT QIDACHS [facility]; Protocol Last Admin: 11/04/24 11:48 Dose: 4 unit Documented By: TRAV Levetiracetam (Levetiracetam 500 Mg Tablet) 500 mg PO BID [facility] Magnesium Hydroxide (Milk Of Magnesia 30 Ml Oral.Susp) 30 ml PO DAILY PRN PRN Reason: Constipation Melatonin (Melatonin 3 Mg Tablet) 6 mg PO BEDTIME PRN PRN Reason: Insomnia Metformin HCl (Metformin Hcl Er 500 Mg Tab.Er.24h) 500 mg PO DAILY@1700 [facility] Last Admin: 11/03/24 16:53 Dose: 500 mg Documented By: TRAV Multivitamins/Vitamin C (Multivitamin Tablet) 1 tab PO DAILY [facility] Last Admin: 11/04/24 09:25 Dose: 1 tab Documented By: TRAV Nicotine (Nicotine 14 Mg Patch.Td24) 14 mg TRANSDERMA DAILY [facility] Last Admin: 11/04/24 09:25 Dose: 14 mg Documented By: TRAV Ondansetron HCl (Ondansetron Hcl 4 Mg/2 Ml Vial) 4 mg IVPUSH Q8H PRN PRN Reason: Nausea and Vomiting Oxycodone HCl (Oxycodone Hcl Immed Release 5 Mg Tablet) 5 mg PO Q6H PRN PRN Reason: Pain, Moderate(Pain Scale 4-6) Sodium Chloride (0.9 % Sodium Chloride Flush 3 Ml Syringe) 3 ml IVFLUSH QSHIFT [facility] Last Admin: 11/04/24 09:26 Dose: 3 ml Documented By: TRAV Labs 11/04/24 07:24 11/04/24 07:24 Labs: Laboratory Results - last 24 hr 11/03/24 11/04/24 11/04/24 20:24 07:24 07:43 MCV 92.9 MCH 33.3 H MCHC 35.8 RDW 12.3 Plt Count 184 MPV 9.4 Absolute Nucleated RBC 0.000 Nucleated RBC % (auto) 0.0 Anion Gap 11 L Estim Creat Clear Calc 72.5 Estimated GFR > 60 POC Glucose 118 H 143 H Random Glucose 134 H Calcium 9.1 11/04/24 10:29 MCV MCH MCHC RDW Plt Count MPV Absolute Nucleated RBC Nucleated RBC % (auto) Anion Gap Estim Creat Clear Calc Estimated GFR POC Glucose 226 H Random Glucose Calcium Assessment and Plan (1) CVA (cerebral vascular accident): Status: Acute Plan Patient is a 69-year-old male with a past medical history significant for BPH, kidney stones, diabetes, chronic cervical spine issues, who presented to the ED due to right-sided leg weakness and right upper extremity weakness starting 3 days ago. Pt admitted to the hospital for right sided weakness concerning for acute CVA. Acute CVA with R sided weakness Head CT and CTA of head/neck negative for acute process or stenosis MRI C-spine due to multiple falls without acute findings MRI of head showed Acute, nonhemorrhagic stroke/ischemia, posterior left frontal subcortical white matter inferior to the left precentral gyrus. EKG with NSR Lipid panel with mildly elevated LDL of 107 Given ASA 325 mg in ED, continue 81 mg daily Start atorvastatin 40 mg nightly Echo grossly unremarkable with LVEF 55-60%, no evidence of regional wall motion abnormalities, normal diastolic function, and no evidence of intra-atrial shunt PT/OT eval, recommend ST are and pt accepted at [facility] after discharge Neuro consult Monitor on tele Presyncopal episode Pt with episode of increased right-sided weakness, difficulty following commands, slow to respond, and staring off into space VBG, CBC, CMP, POC, and lactic acid all unremarkable. Repeat CT of head negative for hemorrhage, mass effect, or acute findings Contacted Neurology who thought likely due to seizure activity Pt noted with Keppra 500 mg IV, will start on 500 mg p.o. b.i.d. Will attempt to transfer pt to [facility] as Neurology not available here at [facility] until 3 days from now T2DM A1C 9.0, denies previous diagnosis Sliding scale insulin Attempted to start metformin but pt states could not tolerate when tried it 15 years ago Diabetic diet Pt will need follow up outpatient with PCP for diabetes management and monitoring Chronic neck pain CT c-spine with multiple-level broad-based degenerative disc bulge with marked central canal stenosis from C3 through C6 levels. No acute fractures or pathologic bone lesions. Continue oxycodone prn for pain Full code VTE prophy: lovenox Requires continued hospitalization due to acute CVA requiring neurologic and cardiac monitoring, as well as additional specialist consultation with cardiology and safe disposition. Given pt's need to emergent evaluation by neurology, will attempt to transfer to [facility]. Quality Stroke Does the patient have a stroke diagnosis?: No Reason for No Anti-thrombotic by Day Two: Drug treatment not indicated (Pt will be given aspirin, but outside of tNK therapeutic window.) VTE Prior VTE?: No VTE Risk Level:: Medical - moderate - high VTE Device Contraindication: Treatment Not Indicated VTE Drug Contraindication: N/A - Med Ordered
[2024-11-03] MEDS: metFORMIN HCl ER 500 MG TAB.ER.24H PO (16:53)
[2024-11-03] MEDS: levETIRAcetam in NaCl (iso-os) 500 MG/100 ML PIGGYBACK 400 MG IV (17:18)
[2024-11-03 20:30] LABS: Glucose, Whole Blood 118 mg/dL (60-115)
[2024-11-03] MEDS: Atorvastatin Calcium 40 MG TABLET PO (20:39)
[2024-11-04] MEDS: Acetaminophen 325 MG TABLET 975 MG PO ×2 (02:04→11:52)
[2024-11-04 05:28] VITALS: BP 109/68; PULSE 81; RESP 18; TEMP 37.1; O2SAT 98
[2024-11-04 07:34] LABS: Hematocrit 41.6 % (42.0-52.0); Hemoglobin 14.9 g/dl (14.0-18.0); Mean Corpuscular HGB Conc 35.8 g/dl (31.0-36.0); Mean Corpuscular Hemoglobin 33.3 pg (27.0-33.0); Mean Corpuscular Volume 92.9 fL (80.0-98.0); Mean Platelet Volume 9.4 fL (9.4-12.4); Platelet Count 184 X10*3/uL (160-400); Red Blood Count 4.48 X10*6/uL (4.60-5.80); Red Cell Distribution Width 12.3 % (11.0-16.0); White Blood Count 8.4 X10*3/uL (4.8-10.8)
[2024-11-04 07:49] LABS: Anion Gap 11 (12-20); Blood Urea Nitrogen 16 mg/dL (9-16); Calcium 9.1 mg/dL (8.4-10.2); Carbon Dioxide 23 mmol/L (22-29); Chloride 108 mmol/L (96-108); Creatinine Clr Calc Pharmacy 72.5; Estimated Glomerular Filt Rate > 60; Glucose Random 134 mg/dL (60-115); Potassium 4.4 mmol/L (3.3-5.1); Sodium 138 mmol/L (135-145)
[2024-11-04 07:50] VITALS: BP 133/84; PULSE 78; RESP 20; TEMP 36.4; O2SAT 98
[2024-11-04 07:52] LABS: Glucose, Whole Blood 143 mg/dL (60-115)
--- NOTE | 2024-11-04 08:21 | MHC.CM.PN ---
Pt to be transfered to [facility] for care there.
[2024-11-04] MEDS: Nicotine 14 MG PATCH.TD24 TRANSDERMA (09:25)
[2024-11-04] MEDS: Multivitamin TABLET 1 TAB PO (09:25)
[2024-11-04] MEDS: Aspirin Enteric Coated 81 MG TABLET.DR PO (09:25)
[2024-11-04] MEDS: 0.9 % Sodium Chloride Flush 3 ML SYRINGE IVFLUSH (09:26)
[2024-11-04 10:59] LABS: Glucose, Whole Blood 226 mg/dL (60-115)
[2024-11-04 11:02] VITALS: BP 132/75; PULSE 64; RESP 20; TEMP 36.7; O2SAT 98
[2024-11-04] MEDS: Insulin Lispro 100 UNIT/ML 3 ML VIAL SUBCUT (11:48)
[2024-11-04] MEDS: Enoxaparin Sodium 40 MG/0.4 ML SYRINGE SUBCUT (11:49)
[2024-11-04] MEDS: levETIRAcetam in NaCl (iso-os) 500 MG/100 ML PIGGYBACK 400 MG IV (12:53)
[2024-11-04 15:37] VITALS: BP 121/61; PULSE 74; RESP 16; TEMP 36.5; O2SAT 97
--- NOTE | 2024-11-04 15:37 | P.DS_ITS ---
DS: Providers Provider Date of Service: 11/04/24 Date of admission: 11/01/24 22:55 Date of discharge: 11/04/24 Primary care physician: None Physician Consults: 11/01/24 23:23 Consult to Neurology Routine Consulting Provider: [facility] Reason for consultation: CVA, R weakness Has provider been notified: Yes DS: Transfer Hospital Acceptance Reason for Transfer: Pt with acute CVA and subsequent change in status concerning for possible seizure activity. Pt needs to be transferred as he need imminent specialist neurological evaluation and neurology not available here [place] [facility] [place] Name of Facility: [facility] DS: Diagnosis Discharge Diagnosis (1) CVA (cerebral vascular accident): Status: Acute (2) Right sided weakness: Status: Acute DS: Summary Hospital Course Hospital Course: From admission HPI: Patient is a 69-year-old male with a past medical history significant for BPH, kidney stones, diabetes, chronic cervical spine issues, who presented to the ED due to right-sided leg weakness and right upper extremity weakness starting 3 days ago. The patient reports that he woke Tuesday morning and was unable to lift his right leg. He thought if he gave it time that it would get better however it has not improved. He also reports right-sided arm weakness and decreased geoint analyst strength. He has had multiple falls including head strike and loss of consciousness, last 2 days ago. He also describes some occipital head pressure. He states that he did not seek medical care as he did not have anybody to watch his 8-year-old son. He denies any nausea, vomiting, chest pain, shortness of breath or urinary symptoms including frequency, urgency or dysuria. Hospital course: Pt was admitted to the hospital for ongoing right-sided weakness x3 days concerning for CVA. CT of head negative for acute intracranial process, though showed several remote lacunar infarcts in centrum semiovale of left frontal lobe. CTA of head and neck patent without large vessel occlusion or flow- limiting stenosis. Cervical spine MRI negative for acute findings. Head/brain MRI showed acute, nonhemorrhagic stroke/ischemia of posterior left frontal subcortical white matter inferior to the left precentral gyrus. Also showed small-vessel occlusive disease and polypoid signal abnormality of left maxillary sinus. Echocardiogram grossly unremarkable with LVEF 55-60%, no evidence of regional wall motion abnormalities, normal diastolic function, and no evidence of intra-atrial shunt. Labs were significant for elevated glucose as high as 311, A1c 9.0, and lipid panel WNL except for mildly elevated LDL at 107. Pt was started on aspirin and statin and monitored on telemetry. Of note, pt denies any previous significant PMH and was not taking any prescription medications at time of presentation. Reports he has not followed with a PCP in the past 5-10 years. Pt was seen and evaluated by Physical therapy yesterday who recommended STR and pt was accepted at [facility] after discharge. During subsequent PT evaluation today pt was noted to be significantly more weak on his right side. Was called to bedside and found pt slow to respond, unable to move right leg, had uncoordinated right arm movements, positive right pronator drift, eyes not tracking, staring off into space, and complaining of headache and blurry vision. Episode lasted around 15 minutes before mentation started to slowly improve. VBG, CBC, CMP, POC, and lactic acid all unremarkable. Repeat CT of head negative for hemorrhage, mass effect, or acute findings, though redemonstrated age-related atrophy with chronic microvascular leukomalacia and small infarction in left posterior frontal lobe. Contacted Neurology via text who thought change in status likely secondary to seizure disorder and pt was given empiric Keppra 500 mg IV. Pt was afebrile so LP was not recommended. Since Neurology is currently not available at this facility for the next 3 days, suggested transferring pt as he needs emergent neurologist evaluation. [facility] neurology graciously accepted pt for transfer, though bed was initially unavailable and pt stayed the night [place] [facility] Pt seen on rounds this morning and had no acute events last night. Pt is aware of feeling that ?something was not right? during episode, but can not find the words to properly describe it. States he feels m uch better, and has had no repeat episodes. Currently pt's mentation, coordination, and strength appear improved from yesterday. Pt continues to be treated with empiric Keppra 500 mg p.o. b.i.d.. Time Attestation Discharge Coordination Time (in mins): 35 Quality: Safe Use of Opioids Does Pt have an Active Cancer Diagnosis on the Problem List?: No Quality: Stroke Does the patient have a stroke diagnosis?: No Physical Exam Vital Signs: Vital Signs: Selected Entries 11/04/24 11:02 11/04/24 15:37 Temperature 97.7 F Pulse Rate 74 Respiratory Rate 16 Blood Pressure 132/75 121/61 Pulse Oximetry 97 Oxygen Delivery Me thod Room Air General: AOx3, no acute distress Resp: CTA bilaterally CVS: S1, S2, RRR GI: +BS, NT, no distention Skin: Warm, dry Neuro: Face symmetric, speech fluent. Visual morton appear full and intact. Negative pronator drift. RUE preserved and symmetric; RLE 2/5 strength. Sensation to light tough preserved in face and upper and lower extremities. Extremities: No edema Psych: Appropriate affect DS: Data Data Completed and Pending Labs on day of discharge: Laboratory Results - last 24 hr 11/02/24 11/02/24 11/03/24 17:39 20:36 06:38 WBC 7.3 RBC 4.49 L Hgb 14.4 Hct 41.9 L MCV 93.3 MCH 32.1 MCHC 34.4 RDW 12.0 Plt Count 200 MPV 9.9 Absolute Nucleated RBC 0.000 Nucleated RBC % (auto) 0.0 VBG pH VBG pCO2 VBG pO2 VBG HCO3 VBG O2 Saturation VBG Base Excess Sodium 137 Potassium 4.0 Chloride 107 Carbon Dioxide 25 Anion Gap 9 L BUN 17 H Creatinine 0.94 Estim Creat Clear Calc 73.3 Estimated GFR > 60 POC Glucose 183 H 271 H Random Glucose 169 H Lactic Acid Calcium 8.7 Total Bilirubin AST ALT Alkaline Phosphatase Total Creatine Kinase Total Protein Albumin 11/03/24 11/03/24 11/03/24 07:23 11:05 13:25 WBC RBC Hgb Hct MCV MCH MCHC RDW Plt Count MPV Absolute Nucleated RBC Nucleated RBC % (auto) VBG pH VBG pCO2 VBG pO2 VBG HCO3 VBG O2 Saturation VBG Base Excess Sodium Potassium Chloride Carbon Dioxide Anion Gap BUN Creatinine Estim Creat Clear Calc Estimated GFR POC Glucose 180 H 304 H 293 H Random Glucose Lactic Acid Calcium Total Bilirubin AST ALT Alkaline Phosphatase Total Creatine Kinase Total Protein Albumin 11/03/24 11/03/24 11/03/24 14:14 14:19 15:17 WBC 7.2 RBC 4.52 L Hgb 14.8 Hct 41.8 L MCV 92.5 MCH 32.7 MCHC 35.4 RDW 12.3 Plt Count 203 MPV 9.1 L Absolute Nucleated RBC 0.000 Nucleated RBC % (auto) 0.0 VBG pH 7.41 VBG pCO2 48 VBG pO2 27 VBG HCO3 30 H VBG O2 Saturation 34.0 VBG Base Excess 5.3 Sodium 141 Potassium 4.4 Chloride 105 Carbon Dioxide 29 Anion Gap 11 L BUN 17 H Creatinine 1.08 Estim Creat Clear Calc 63.8 Estimated GFR > 60 POC Glucose 228 H Random Glucose 189 H Lactic Acid 1.7 Calcium 9.5 D Total Bilirubin 0.2 AST 12 ALT 12 Alkaline Phosphatase 62 Total Creatine Kinase 93 Total Protein 6.8 Albumin 3.9 Discharge Plan Discharge Anticipated Discharge Date/Time: 11/03/24 17:12 Patient Disposition: Xfer Acute Care Hospital Discharge Diagnosis: Acute CVA Referrals: Physician,None [Primary Care Provider, Medical] - 1 Week Discharge Medications: New atorvastatin 40 mg Tablet 40 mg PO BEDTIME Qty: 1 0RF aspirin 81 mg Tablet,Delayed Release (Dr/Ec) 81 mg PO DAILY Qty: 1 0RF metformin 500 mg Tablet Extended Release 24 Hr 500 mg PO DAILY@1700 Qty: 1 0RF Continued acetaminophen [Tylenol Extra Strength] 500 mg tablet 1,000 mg PO QID PRN (Reason: fever or pain) Qty: 14 0RF (DME) blood-glucose meter [FreeStyle Lite Meter] Kit See Rx Instructions .ROUTE .MEDSUPPLY Qty: 1 0RF Rx Instructions: As directed (DME) FreeStyle Lite Strips Strip See Rx Instructions .ROUTE .MEDSUPPLY Qty: 100 0RF Rx Instructions: As directed (DME) lancets [FreeStyle Lancets] 28 gauge misc See Rx Instructions .ROUTE .MEDSUPPLY Qty: 100 0RF Rx Instructions: As directed multivitamin Tablet 1 tab PO DAILY [id number] [id number] mg Tablet 1 tab PO DAILY Discontinued aspirin 325 mg Tablet 325 mg PO Q6H PRN (Reason: Pain) Discharge Orders: Discharge Order (Routine); Ordered 11/03/24 Ordered By: Gloria Liang Activity on Discharge: As tolerated Stand Alone Forms: Patient Portal Discharge page Print Language: Sammarinese Care Plan Goals: See below Health Concerns: Acute CVA Plan of Treatment: Pt will be transferred to [facility] under neurology services for acute care and continued workup Continue aspirin and statin Continue empiric Heather Has been accepted to [facility] for STR Assessment: See discharge summary
== END 2024-11-04 15:55 | disposition short-term general hospital (02) | DRG 65 ==
LOC: HO.ED 11-02 00:34 → HO.EDOVER 11-02 00:55 → HO.IMC 11-02 16:27
PROVIDERS: Internal Medicine; Physician Assistant Medical; Admitting Provider Physician Assistant; Emergency Provider Internal Medicine; Visit Provider Student in an Organized Health Care Education/Training Program
DX: I63.9 Cerebral infarction, unspecified (principal); G81.91 Hemiplegia, unspecified affecting right dominant side; F17.290 Nicotine dependence, other tobacco product, uncomplicated; R29.706 NIHSS score 6; R56.9 Unspecified convulsions; E11.9 Type 2 diabetes mellitus without complications; M54.2 Cervicalgia; G89.29 Other chronic pain; Z71.6 Tobacco abuse counseling; Z79.899 Other long term (current) drug therapy
CPT/HCPCS: 36415; 70450; 70496; 70498; 70551; 72141; 80048; 80053; 80061; 80307; 81003; 82550; 82803; 82947; 83036; 83605; 83735; 84484; 85025; 85027; 85610; 85730; 93005; 93306; 97110; 97162; 97166; 97530; 99285; J1650; J1953; Q9957; Q9967

== ENCOUNTER → 2024-11-01 16:43 | Outpatient (BNV) | payer MEDICARE, MEDICAID, SELFPAY | PROVIDERS: Admitting Provider Physician Assistant; Emergency Provider Internal Medicine; Visit Provider Internal Medicine Cardiovascular Disease | DX: R53.1 Weakness (principal) | CPT/HCPCS: 93010 ==

== ENCOUNTER → 2024-11-01 16:54 | Outpatient (BNV) | payer MEDICARE, MEDICAID, SELFPAY | PROVIDERS: Emergency Provider Internal Medicine; Visit Provider Radiology Diagnostic Radiology | DX: R53.1 Weakness (principal) | CPT/HCPCS: 72141 ==

== ENCOUNTER 2024-11-01 22:55 | Outpatient (BNV) | payer MEDICARE, MEDICAID, SELFPAY | END 2024-11-02 07:00 | PROVIDERS: Admitting Provider Physician Assistant; Emergency Provider Internal Medicine; Visit Provider Internal Medicine Cardiovascular Disease | DX: I63.9 Cerebral infarction, unspecified (principal) | CPT/HCPCS: 93306 ==

== ENCOUNTER 2024-11-01 22:55 | Outpatient (BNV) | payer MEDICARE, MEDICAID, SELFPAY | END 2024-11-03 12:45 | PROVIDERS: Admitting Provider Physician Assistant; Emergency Provider Internal Medicine; Visit Provider Nuclear Medicine | DX: I63.532 Cerebral infarction due to unspecified occlusion or stenosis of left posterior cerebral artery (principal) | CPT/HCPCS: 70450 ==

== ENCOUNTER 2024-11-01 22:55 | Outpatient (BNV) | payer MEDICARE, MEDICAID, SELFPAY | END 2024-11-02 12:08 | PROVIDERS: Admitting Provider Physician Assistant; Emergency Provider Internal Medicine; Visit Provider Radiology Diagnostic Radiology | DX: I63.9 Cerebral infarction, unspecified (principal); I67.89 Other cerebrovascular disease; J34.89 Other specified disorders of nose and nasal sinuses; R90.82 White matter disease, unspecified | CPT/HCPCS: 70551 ==

== ENCOUNTER → 2024-11-01 22:55 | Outpatient (BNV) | payer MEDICARE, MEDICAID, SELFPAY | PROVIDERS: Admitting Provider Physician Assistant; Emergency Provider Internal Medicine; Visit Provider Physician Assistant | DX: I63.9 Cerebral infarction, unspecified (principal); R53.1 Weakness | CPT/HCPCS: 99223; 99232; 99233 ==

== ENCOUNTER 2024-11-21 13:37 | Outpatient (AMB) | payer MEDICARE, MEDICAID, SELFPAY ==
--- NOTE | 2024-11-21 13:44 | MHC.PC.OV ---
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: No Accompanied by: Self / Same As Patient Allergies seafood Allergy (Unknown, Verified 11/21/24 13:45) Unknown Tobacco use date assessed: 11/21/24 Fall risk assessment: 1 Fall in past year Last assessed Fall Risk: 11/21/24 Dental Screening Dental Screen Date: 11/21/24 Did you have a dental visit in the last 12 months?: Yes Did you have a dental problem in the last 6 months where you did not have access to dental care?: No PFSH Medical History Cerebrovascular accident BPH w urinary obs/LUTS Nephrolithiasis Borderline diabetic Family History (Updated 11/21/24 @ 13:57 by Florecita Nuñez MA) Mother No problems noted. Father No problems noted. Social History Household Members: Children Household Members Other:: 2 boys Housing: Apartment Alcohol intake: current Alcohol intake frequency: holidays/special occasions only Alcohol type: beer Patient Tobacco Use Status: Current everyday Tobacco user Tobacco use type: Cigar Cigarettes Per Day: 1 Years Smoked: 47years e-Cigarette/Vaping Use: Currently Using service: No Current occupational status: retired Cognitive needs: No Hearing needs: No Vision needs: No Questionnaire PHQ-9 Over the last 2 weeks, how often have you been bothered by any of the following problems? 1. Little interest or pleasure in doing things: not at all 2. Feeling down, depressed, or hopeless: not at all 3. Trouble falling or staying asleep, or sleeping too much: not at all 4. Feeling tired or having little energy: not at all 5. Poor appetite or overeating: not at all 6. Feeling bad about yourself - or that you are a failure or have let yourself or your family down: not at all 7. Trouble concentrating on things, such as reading the newspaper or watching television: not at all 8. Moving or speaking so slowly that other people could have noticed. Or the opposite - being so fidgety or restless that you have been moving around a lot more than usual: not at all 9. Thoughts that you would be better off or of hurting yourself in some way: not at all Total score: 0 Source: Developed by Drs. Pedro Hogan, Barbara Shepard, Arnoldo Holman and colleagues, with an educational kalyan from [employer]. Thrive Questionnaire Date Thrive assessed: 11/21/24 I am a: Patient Within the past 12 months, did the food you bought not last and you didn't have the money to get more?: Never true Within the past 12 months, did you worry whether your food would run out before you got money to buy more?: Never true Do you have trouble paying for medicines?: No Do you have trouble getting transportation to medical appointments?: No Do you have trouble paying your heating and electricity bill?: No Do you have trouble taking care of your child, family member or friend?: No Do you have trouble with day-to-day activities such as bathing, preparing meals, shopping, managing finances, etc.?: No Are you currently unemployed and looking for a job?: No Are you interested in more education?: No THRIVE Score: 0 AUDIT C Alcohol Use Questionnaire (AUDIT-C) 1. How often do you have a drink containing alcohol?: Monthly or less 2. How many drinks containing alcohol do you have on a typical day when you are drinking?: 1 or 2 3. How often do you have six or more drinks on one occasion?: Less than monthly Total Score: 2 ZAINAB-7 AMB Questionnaire ZAINAB-7 Date ZAINAB - 7 assessed: 11/21/24 Feeling nervous, anxious, or on edge: 0 = Not at all Not being able to stop or control worryin = Not at all Worrying too much about different things: 0 = Not at all Trouble relaxin = Not at all Being so restless that it is hard to sit still: 0 = Not at all Becoming easily annoyed or irritable: 0 = Not at all Feeling afraid as if something awful might happen: 0 = Not at all Total ZAINAB-7 score (0-4 normal; 5-9 mild; 10-14 moderate; 15-21 severe): 0 Source: Developed by Drs. Pedro Hogan, Barbara Shepard, Arnoldo Holman and colleagues, with an educational kalyan from [employer]. Physical exam (Primary Care) Vital Signs: Last Vital Signs Temp 97.4 F 11/21/24 13:51 Pulse 93 11/21/24 13:51 BP 130/80 11/21/24 13:51 Pulse Ox 99 11/21/24 13:51 Oxygen Delivery Method Room Air 11/21/24 13:51 BMI result Body Mass Index 23.3 Tobacco/Smoking Status: Tobacco use Status Tobacco use date assessed 11/21/24 11/21/24 13:46 Patient Tobacco Use Status Current everyday Tobacco 11/21/24 13:46 Tobacco use type Cigar 11/21/24 13:46 e-Cigarette/Vaping Use Currently Using 11/21/24 13:46 PHQ-9: PHQ-9 Score PHQ-9: Total score 0 11/21/24 13:46 Thrive Assessment: Date of Thrive Assessment Date Thrive assessed 11/21/24 11/21/24 13:46 Coding Level of Care Code New Pt Level 4 (44527) Complex EM visit Add On G2211 Diagnoses CVA (cerebral vascular accident) I63.9 Borderline diabetic R73.03 Assessment & Plan Assessment & Plan (1) CVA (cerebral vascular accident): Code(s): I63.9 - Cerebral infarction, unspecified Category: Medical Plan: Hospital discharge summary from [facility]. Neurology consult requested. Sx meds (keppra) has been discontinued on discharge. (2) Borderline diabetic: Code(s): R73.03 - Prediabetes Category: Medical Plan: Pt was started on Metformin. He did not take the med as he has not tolerated the med in the past. Jardiance and Trulicity added. Advised to check his blood sugars and bring in the machine in three weeks. Plan History of Present Illness - The patient is a 69-year-old male presenting with a history of stroke and hyperglycemia management. - The patient experienced a stroke during a recent hospital stay, which was associated with elevated blood glucose levels. - The patient reports an allergy to metformin, which causes vomiting and headaches. - Current blood glucose management includes the use of glipizide, which is deemed insufficient by the physician. - The patient lives with his son and has a daughter who is a registered nurse, providing some support. - The patient manages his own cooking and is advised to avoid carbohydrates such as rice, corn, and regular potatoes, while consuming more vegetables and sweet potatoes. Social History - The patient lives with his son and receives support from his daughter, who is a registered nurse. - The patient cooks for himself and is advised to follow a diet low in carbohydrates, avoiding rice, corn, and regular potatoes, while consuming more vegetables and sweet potatoes. Review of Systems - Endocrine: Reports hyperglycemia, denies hypoglycemia. - Neurological: Reports history of stroke, denies current neurological deficits. Physical Exam General: Cooperative and healthy appearing Nutritional Appearance: Well nourished Orientation/consciousness: Patient oriented x3 Limitations: No limitations Head: Normal to inspection General: Appearance normal, both eyes and all related structures Neck: Normal visual inspection Chest: Normal palpation of entire chest wall Respiratory: N ormal respiratory effort Neurology: Patient needs to see a neurologist for the stroke. Results Plan 1. Stroke - The patient is advised to follow up with a neurologist for further evaluation and management of stroke. 2. Hyperglycemia - The patient will discontinue glipizide upon starting Jardiance and Trulicity. - Jardiance is to be taken once daily, and Trulicity is to be administered as a weekly injection. - The patient is instructed to monitor blood glucose levels fasting and two hours postprandial. Discussion Notes During the visit, I discussed with the patient the management of his hyperglycemia, including the introduction of Jardiance and Trulicity, and the discontinuation of glipizide once the new medications are started. I emphasized the importance of monitoring blood glucose levels both fasting and postprandial. We also discussed dietary modifications to manage blood sugar levels, focusing on reducing carbohydrate intake. Additionally, I recommended a follow-up appointment with a neurologist for stroke management. The patient was informed about the next appointment in three weeks to review progress and adjust the treatment plan as necessary. Patient Instructions - Start taking Jardiance once daily and Trulicity once a week as prescribed. - Stop taking glipizide once you have started the new medications. - Monitor your blood sugar levels fasting and two hours after meals. - Follow a low-carbohydrate diet, avoiding rice, corn, and regular potatoes, while eating more vegetables and sweet potatoes. - Attend a follow-up appointment with a neurologist for stroke management. - Return for a follow-up visit in three weeks with your blood sugar log. Orders: Orders Basic Metabolic Panel Today I63.9 - Cerebral infarction, unspecified, R73.03 - Prediabetes Lipid Panel Today I63.9 - Cerebral infarction, unspecified, R73.03 - Prediabetes Liver Panel Today I63.9 - Cerebral infarction, unspecified, R73.03 - Prediabetes Hemoglobin A1c Today I63.9 - Cerebral infarction, unspecified, R73.03 - Prediabetes Complete Blood Count no Diff Today I63.9 - Cerebral infarction, unspecified, R73.03 - Prediabetes Thyroid Stimulating Hormone Today I63.9 - Cerebral infarction, unspecified, R73.03 - Prediabetes UA and rflx microscopic Today I63.9 - Cerebral infarction, unspecified, R73.03 - Prediabetes Referrals Neurology Referral I63.9 - Cerebral infarction, unspecified Medications: New dulaglutide (Trulicity) 1.5 mg (0.5 mL) subcut QWEEK 2 mL 1RF empagliflozin (Jardiance) 25 mg PO DAILY 90 tabs 1RF
[2024-11-21 13:51] VITALS: BP 130/80; PULSE 93; TEMP 36.3; O2SAT 99; BMI 23.3
== END 2024-11-21 14:09 | disposition home or self-care (01) ==
PROVIDERS: Visit Provider Internal Medicine
DX: I63.9 Cerebral infarction, unspecified (principal); R73.03 Prediabetes

== ENCOUNTER → 2024-11-21 13:37 | Outpatient (BNVA) | payer MEDICARE, MEDICAID, SELFPAY | PROVIDERS: Visit Provider Internal Medicine | DX: I63.9 Cerebral infarction, unspecified (principal); R73.03 Prediabetes | CPT/HCPCS: 99202 ==

== ENCOUNTER 2024-11-23 13:42 | Outpatient (REF) | payer MEDICARE, MEDICAID, SELFPAY ==
[2024-11-23 14:15] LABS: Hematocrit 42.3 % (42.0-52.0); Hemoglobin 15.1 g/dl (14.0-18.0); Mean Corpuscular HGB Conc 35.7 g/dl (31.0-36.0); Mean Corpuscular Hemoglobin 32.9 pg (27.0-33.0); Mean Corpuscular Volume 92.2 fL (80.0-98.0); NRBC Abs Auto 0.000 X10*3/uL (0.0-0.012); NRBC Pct Auto 0.0 /100WBC (0.0-0.2); Platelet Count 235 X10*3/uL (160-400); Red Blood Count 4.59 X10*6/uL (4.60-5.80); White Blood Count 9.3 X10*3/uL (4.8-10.8)
[2024-11-23 14:19] LABS: Appearance Urine Cloudy; Glucose Urine UA Negative (Negative); PH 7.5 (5.0-9.0); Specific Gravity - Urine 1.015 (1.005-1.025); UMIC TRIGGER UA YES
[2024-11-23 14:48] LABS: Hemoglobin A1C 290.7015 umol/L; Total Hemoglobin (HGBA1C) 3937.8288 umol/L
[2024-11-23 15:06] LABS: Alanine Aminotransferase 37 U/L (0-40); Albumin Level 4.4 g/dL (3.5-5.0); Alkaline Phosphatase 57 U/L (39-117); Anion Gap 13 (12-20); Aspartate Amino Transferase 20 U/L (5-37); Blood Urea Nitrogen 16 mg/dL (9-16); Calcium 10.1 mg/dL (8.4-10.2); Carbon Dioxide 30 mmol/L (22-29); Chloride 102 mmol/L (96-108); Cholesterol 117 mg/dL (<200); Estimated Glomerular Filt Rate > 60; HDL Cholesterol 47 mg/dL (>40); Potassium 4.2 mmol/L (3.3-5.1); Sodium 141 mmol/L (135-145); Thyroid Stimulating Hormone 0.61 uIU/mL (0.32-4.0); Total Protein 7.5 g/dL (6.5-8.0); Triglycerides 64 mg/dL (<150)
== END 2024-11-23 13:43 | disposition home or self-care (01) ==
LOC: HO.LAB 13:42
PROVIDERS: PCP Internal Medicine; Visit Provider Internal Medicine
DX: R73.03 Prediabetes (principal); I63.9 Cerebral infarction, unspecified
CPT/HCPCS: 36415; 80048; 80061; 80076; 81001; 83036; 84443; 85027

== ENCOUNTER 2025-01-11 09:40 | Outpatient (AMB) | payer MEDICARE, MEDICAID, SELFPAY ==
--- NOTE | 2025-01-11 09:46 | MHC.PC.OV ---
Vital Signs 01/11/25 09:47 Height 5 ft 7 in Weight 140 lb 4 oz BMI 22.0 BP 140/68 H Blood Pressure Location Rt femoral Position Sitting Respiration 16 Pulse 83 Pulse Source Pulse Oximeter Temp 97 F Temp Source Temporal Artery Scan Pulse Oximetry (%) 100 Oxygen Delivery Method Room Air Intake Visit Reasons: follow up Extrusion Technician Required: No Accompanied by: Self / Same As Patient Allergies seafood Allergy (Unknown, Verified 01/11/25 11:35) Unknown Medication List - Last Reconciled 01/11/25 by Myla Leigh PA-C acetaminophen (Tylenol Extra Strength) 1,000 mg (2 x 500 mg) PO QID PRN alcohol swabs (Alcohol Prep Pads) pad topical BID aspirin 81 mg PO DAILY atorvastatin 40 mg PO BEDTIME blood sugar diagnostic (FreeStyle Lite Strips) As directed blood-glucose meter (FreeStyle Lite Meter kit) As directed dulaglutide (Trulicity) 1.5 mg (0.5 mL) subcut QWEEK empagliflozin (Jardiance) 25 mg PO DAILY lancets (FreeStyle Lancets) As directed magnesium hydroxide (Milk of Magnesia) 30 mL PO DAILY PRN multivitamin 1 tab PO DAILY nicotine 1 patch transdermal DAILY sildenafil (Viagra) 50 mg PO DAILY PRN Tobacco use date assessed: 11/21/24 Fall risk assessment: 1 Fall in past year Last assessed Fall Risk: 11/21/24 Dental Screening Dental Screen Date: 11/21/24 Did you have a dental visit in the last 12 months?: Yes Did you have a dental problem in the last 6 months where you did not have access to dental care?: No HPI follow up HPI Details The patient is a 69-year-old male presenting with a follow-up for a cerebrovascular accident (stroke) and management of hypertension and diabetes mellitus. The patient experienced a cerebrovascular accident in October, with a clot on the left side of the brain affecting the right side of the body. He was seen at [place] and later transferred to [facility] for further management. Following the stroke, he was discharged from a rehabilitation facility on January 08. The patient has a history of hypertension, which was noted to be elevated during the visit, possibly due to recent coffee consumption. He is currently on aspirin and atorvastatin for management. The patient has diabetes mellitus, with a hemoglobin A1c of 8.9% recorded last month. He is on Jardiance and Trulicity for diabetes management, with recent adjustments made to his medication regimen. His blood glucose levels at home have been stable, with a recent reading of 111 mg/dL. The patient has a history of tobacco use and expressed a desire to quit smoking. Nicotine patches were offered to assist with smoking cessation. The patient reported erectile dysfunction and inquired about the use of sildenafil (Viagra). A prescription for sildenafil was provided, starting at 50 mg. Social History - Family: Lives with son, who is usually present at home. - Tobacco use: History of smoking, expressed desire to quit. - Exercise: No specific exercise routine mentioned. [facility] Medical History (Updated 01/11/25 @ 11:38 by Myla Leigh PA-C) Erectile dysfunction Tobacco use disorder Hypertension Type 2 diabetes mellitus Cerebrovascular accident BPH w urinary obs/LUTS Nephrolithiasis Family History Mother No problems noted. Father No problems noted. Social History Household Members: Children Household Members Other:: 2 boys Housing: Apartment Alcohol intake: current Alcohol intake frequency: holidays/special occasions only Alcohol type: beer Patient Tobacco Use Status: Current everyday Tobacco user Tobacco use type: Cigar Cigarettes Per Day: 1 Years Smoked: 47years e-Cigarette/Vaping Use: Currently Using service: No Current occupational status: retired Cognitive needs: No Hearing needs: No Vision needs: No Questionnaire PHQ-9 Over the last 2 weeks, how often have you been bothered by any of the following problems? 1. Little interest or pleasure in doing things: not at all 2. Feeling down, depressed, or hopeless: not at all 3. Trouble falling or staying asleep, or sleeping too much: not at all 4. Feeling tired or having little energy: not at all 5. Poor appetite or overeating: not at all 6. Feeling bad about yourself - or that you are a failure or have let yourself or your family down: not at all 7. Trouble concentrating on things, such as reading the newspaper or watching television: not at all 8. Moving or speaking so slowly that other people could have noticed. Or the opposite - being so fidgety or restless that you have been moving around a lot more than usual: not at all 9. Thoughts that you would be better off or of hurting yourself in some way: not at all Total score: 0 Depression Screening Interpretation: Negative Depression Screening Done: Yes 49675 - PHQ-9 Billing: Yes Source: Developed by Drs. Pedro Hogan, Barbara Shepard, Arnoldo Holman and colleagues, with an educational kalyan from [employer]. Thrive Questionnaire Date Thrive assessed: 11/21/24 I am a: Patient Within the past 12 months, did the food you bought not last and you didn't have the money to get more?: Never true Within the past 12 months, did you worry whether your food would run out before you got money to buy more?: Never true Do you have trouble paying for medicines?: No Do you have trouble getting transportation to medical appointments?: No Do you have trouble paying your heating and electricity bill?: No Do you have trouble taking care of your child, family member or friend?: No Do you have trouble with day-to-day activities such as bathing, preparing meals, shopping, managing finances, etc.?: No Are you currently unemployed and looking for a job?: No Are you interested in more education?: No THRIVE Score: 0 AUDIT C Alcohol Use Questionnaire (AUDIT-C) 1. How often do you have a drink containing alcohol?: Monthly or less 2. How many drinks containing alcohol do you have on a typical day when you are drinking?: 1 or 2 3. How often do you have six or more drinks on one occasion?: Less than monthly Total Score: 2 Score Reviewed/Action Taken: No ZAINAB-7 AMB Questionnaire ZAINAB-7 Date ZAINAB - 7 assessed: 11/21/24 Feeling nervous, anxious, or on edge: 0 = Not at all Not being able to stop or control worryin = Not at all Worrying too much about different things: 0 = Not at all Trouble relaxin = Not at all Being so restless that it is hard to sit still: 0 = Not at all Becoming easily annoyed or irritable: 0 = Not at all Feeling afraid as if something awful might happen: 0 = Not at all Total ZAINAB-7 score (0-4 normal; 5-9 mild; 10-14 moderate; 15-21 severe): 0 Source: Developed by Drs. Pedro Hogan, Barbara Shepard, Arnoldo Homlan and colleagues, with an educational kalyan from [employer]. ZAINAB-7 Assessment Billing ZAINAB-7 Assessment Tool: ZAINAB-7 Assessment 83551 Review of Systems Const Details: - Cardiovascular: Denies chest pain, dizziness, or weakness. - Respiratory: Denies shortness of breath. - Neurological: Denies numbness in legs. - Musculoskeletal: Denies recent falls or leg swelling. All systems reviewed & are unremarkable except as noted in HPI and below Physical exam (Primary Care) Vital Signs: Last Vital Signs Temp 97 F 01/11/25 09:47 Pulse 83 01/11/25 09:47 Resp 16 01/11/25 09:47 BP 143/68 H 01/11/25 09:47 Pulse Ox 100 01/11/25 09:47 Oxygen Delivery Method Room Air 01/11/25 09:47 Care Plan Goal for BP management: <140/90 at Goal BMI result Body Mass Index 22.0 Normal BMI Tobacco/Smoking Status: Tobacco use Status Tobacco use date assessed 11/21/24 01/11/25 09:49 Patient Tobacco Use Status Current everyday Tobacco 01/11/25 09:49 Tobacco use type Cigar 01/11/25 09:49 e-Cigarette/Vaping Use Currently Using 01/11/25 09:49 PHQ-9: PHQ-9 Score PHQ-9: Total score 0 01/11/25 09:54 Depression Screening Interpretation: Negative Thrive Assessment: Date of Thrive Assessment Date Thrive assessed 11/21/24 01/11/25 09:49 Const Other: Appearance: Alert. Oriented X3. No acute distress. Head: Normal external exam. Normocephalic. Atraumatic. Eyes: Pupils are equal, round, and reactive to light. Extraocular movements intact. Conjunctiva and sclera normal. Eyelids normal. Ears: External auditory canal normal. Tympanic membranes normal. Throat: Pharynx normal. Uvula midline. Moist mucous membranes. Neck: Normal inspection. Neck supple. Full range of motion. No adenopathy. Thyroid Normal. No meningeal signs. No neck mass noted. Cardiovascular: Normal heart rate and rhythm. Heart sound normal. No murmurs noted. Pulses normal throughout. Respiratory: No respiratory distress. Painless inspiration. Breath sounds normal. No wheezes/rales/rhonchi noted. Chest nontender. No accessory muscle usage noted or decreased air movement noted. Abdomen: Soft and nontender. No distention noted. No organomegaly noted. Back: No costovertebral angle tenderness. Full range of motion noted. Skin: Skin warm and dry. Normal skin color. Normal skin turgor. No rashes/lesions/lacerations noted. Extremities: No lower extremity edema. Extremities exhibit normal range of motion. Neuro: Oriented X 3. No motor deficit. No sensory deficit. Reflexes normal. Results Reviewed Results Reviewed: - Labs: CBC normal, sodium normal, potassium normal, carbon dioxide 30 (slightly elevated), anion gap normal, creatinine normal, glucose 119 mg/dL, hemoglobin A1c 8.9%, liver enzymes normal, cholesterol 117 mg/dL, LDL 58 mg/dL, thyroid normal. Coding Level of Care Code Est Pt Level 4 (38913) Complex EM visit Add On G2211 Diagnoses CVA (cerebral vascular accident) I63.9 Hypertension I10 Type 2 diabetes mellitus E11.9 Tobacco use disorder F17.200 Erectile dysfunction N52.9 Additional Codes PHQ-9 - 52908 - PHQ-9 Billing: Yes ([id number]) ZAINAB-7 Assessment Billing - ZAINAB-7 Assessment Tool: ZAINAB-7 Assessment [id number] ([id number]) Assessment & Plan Assessment & Plan (1) CVA (cerebral vascular accident): Code(s): I63.9 - Cerebral infarction, unspecified Category: Medical Plan: The patient is advised to follow up with neurology at [place] for ongoing management of his cerebrovascular accident. He was discharged from rehabilitation on January 08 and should continue with any prescribed therapies. (2) Hypertension: Code(s): I10 - Essential (primary) hypertension Category: Medical Plan: The patient's blood pressure was noted to be elevated, possibly due to recent coffee consumption. He is advised to continue current medications, including aspirin and atorvastatin. (3) Type 2 diabetes mellitus: Code(s): E11.9 - Type 2 diabetes mellitus without complications Category: Medical Plan: The patient's diabetes management includes Jardiance and Trulicity, with recent medication adjustments. He is advised to monitor blood glucose levels at home and return for an A1c check in February. (4) Tobacco use disorder: Code(s): F17.200 - Nicotine dependence, unspecified, uncomplicated Category: Medical Plan: The patient expressed a desire to quit smoking, and nicotine patches were prescribed to assist with cessation. (5) Erectile dysfunction: Code(s): N52.9 - Male erectile dysfunction, unspecified Category: Medical Plan: The patient was prescribed sildenafil, starting at 50 mg, to manage erectile dysfunction. Plan Plan Patient was informed and verbally consented to the use of an ambient scribe for clinic note documentation during this visit. 1. Cerebrovascular Accident (Stroke) The patient is advised to follow up with neurology at [place] for ongoing management of his cerebrovascular accident. He was discharged from rehabilitation on January 08 and should continue with any prescribed therapies. 2. Hypertension The patient's blood pressure was noted to be elevated, possibly due to recent coffee consumption. He is advised to continue current medications, including aspirin and atorvastatin. 3. Diabetes Mellitus The patient's diabetes management includes Jardiance and Trulicity, with recent medication adjustments. He is advised to monitor blood glucose levels at home and return for an A1c check in February. 4. Tobacco Use Disorder The patient expressed a desire to quit smoking, and nicotine patches were prescribed to assist with cessation. 5. Erectile Dysfunction The patient was prescribed sildenafil, starting at 50 mg, to manage erectile dysfunction. During the visit, we discussed the importance of following up with neurology for stroke management and the need for ongoing blood pressure monitoring due to recent elevation. We reviewed the patient's diabetes management plan, including medication adjustments and the importance of monitoring blood glucose levels at home. The patient was advised on smoking cessation strategies, including the use of nicotine patches, and was provided with a prescription for sildenafil to address erectile dysfunction. Orders: Orders PSA,Total (Free>4and<10) Today Z00.00 - Encounter for general adult medical examination without abnormal findings Magnesium Today Z00.00 - Encounter for general adult medical examination without abnormal findings Testosterone, Free/Total Today Z00.00 - Encounter for general adult medical examination without abnormal findings DHEA Sulfate Today Z00.00 - Encounter for general adult medical examination without abnormal findings Dihydrotestosterone Today Z00.00 - Encounter for general adult medical examination without abnormal findings Vitamin B12 and Folate Today Z00.00 - Encounter for general adult medical examination without abnormal findings Vitamin D 25-OH Total Today Z00.00 - Encounter for general adult medical examination without abnormal findings Microalbumin, Random (w Creat) Today E11.9 - Type 2 diabetes mellitus without complications Referrals Gastroenterology Referral Z12.11 - Encounter for screening for malignant neoplasm of colon Neurology Referral E11.9 - Type 2 diabetes mellitus without complications, I63.9 - Cerebral infarction, unspecified, R53.1 - Weakness Medications: New multivitamin 1 tab PO DAILY 90 tabs 3RF sildenafil (Viagra) administer 30 minutes to 4 hours before activity 50 mg PO DAILY PRN 20 tabs 1RF sexual activity nicotine 1 patch transdermal DAILY 28 ea 3RF Refilled dulaglutide (Trulicity) 1.5 mg (0.5 mL) subcut QWEEK 2 mL 3RF empagliflozin (Jardiance) 25 mg PO DAILY 90 tabs 3RF Patient Instructions: - Follow up with neurology at [place] for stroke management. - Continue current medications for hypertension and monitor blood pressure regularly. - Monitor blood glucose levels at home and return for an A1c check in February. - Use nicotine patches as prescribed to assist with smoking cessation. - Take sildenafil as prescribed for erectile dysfunction.
[2025-01-11 09:47] VITALS: BP 140/68; PULSE 83; RESP 16; TEMP 36.1; O2SAT 100; BMI 22.0
== END 2025-01-11 10:31 | disposition home or self-care (01) ==
LOC: HO.HMCSH 09:40
PROVIDERS: PCP Internal Medicine; Visit Provider Physician Assistant Medical
DX: I63.9 Cerebral infarction, unspecified (principal); I10 Essential (primary) hypertension; E11.9 Type 2 diabetes mellitus without complications; F17.200 Nicotine dependence, unspecified, uncomplicated; N52.9 Male erectile dysfunction, unspecified

== ENCOUNTER → 2025-01-11 09:40 | Outpatient (BNVA) | payer MEDICARE, MEDICAID, SELFPAY | PROVIDERS: PCP Internal Medicine; Visit Provider Physician Assistant Medical | DX: I10 Essential (primary) hypertension (principal); E11.9 Type 2 diabetes mellitus without complications; I63.9 Cerebral infarction, unspecified; N52.9 Male erectile dysfunction, unspecified; F17.200 Nicotine dependence, unspecified, uncomplicated; Z71.6 Tobacco abuse counseling | CPT/HCPCS: 96127; 99212 ==

== ENCOUNTER 2025-01-15 08:56 | Outpatient (REF) | payer MEDICARE, MEDICAID, SELFPAY ==
[2025-01-15 10:55] LABS: Appearance Urine Clear; Glucose Urine UA Negative (Negative); PH 6.0 (5.0-9.0); Specific Gravity - Urine 1.020 (1.005-1.025); UMIC TRIGGER UA YES
[2025-01-15 11:00] LABS: Magnesium 2.3 mg/dL (1.6-2.6)
[2025-01-15 11:13] LABS: PSA,Total (Free>4and<10) 0.83 ng/mL (0.00-4.00)
[2025-01-15 11:28] LABS: Folate > 20.0 ng/mL (> or = 4.0); Vitamin B12 717 pg/mL (200-900)
[2025-01-15 13:02] LABS: Microalbum/Creatinine Ratio Ur 135.0 ug/mg cr (<30)
== END 2025-01-15 08:57 | disposition home or self-care (01) ==
LOC: HO.LAB 08:56
PROVIDERS: PCP Internal Medicine; Visit Provider Physician Assistant Medical
DX: Z00.00 Encounter for general adult medical examination without abnormal findings (principal); E11.9 Type 2 diabetes mellitus without complications; I63.9 Cerebral infarction, unspecified; Z12.5 Encounter for screening for malignant neoplasm of prostate; Z13.21 Encounter for screening for nutritional disorder
CPT/HCPCS: 36415; 81001; 82043; 82306; 82570; 82607; 82627; 82642; 82746; 83735; 84153; 84402; 84403

== ENCOUNTER 2025-01-25 11:09 | Outpatient (AMB) | payer MEDICARE, MEDICAID, SELFPAY ==
--- NOTE | 2025-01-25 11:08 | A.OFFPC_ITS ---
Vital Signs 01/25/25 11:09 Height 5 ft 7 in Weight 140 lb BMI 21.9 BP 123/63 Respiration 14 Pulse 80 Pulse Source Pulse Oximeter Temp 98.2 F Temp Source Temporal Artery Scan Pulse Oximetry (%) 97 Oxygen Delivery Method Room Air Intake Visit Reasons: AIC follow up Licsw Required: No Accompanied by: Self / Same As Patient Allergies seafood Allergy (Unknown, Verified 01/25/25 11:34) Unknown Medication List - Last Reconciled 01/25/25 by Myla Leigh PA-C acetaminophen (Tylenol Extra Strength) 1,000 mg (2 x 500 mg) PO QID PRN alcohol swabs (Alcohol Prep Pads) pad topical BID aspirin 81 mg PO DAILY atorvastatin 40 mg PO BEDTIME blood sugar diagnostic (FreeStyle Lite Strips) As directed blood-glucose meter (FreeStyle Lite Meter kit) As directed dulaglutide 3 mg (0.5 mL) subcut QWEEK insulin glargine (Lantus Solostar U-100 Insulin) 10 units (0.1 mL) subcut QPM 1 month lancets (FreeStyle Lancets) As directed multivitamin 1 tab PO DAILY sildenafil (Viagra) 50 mg PO DAILY PRN Tobacco use date assessed: 11/21/24 Dental Screening Dental Screen Date: 11/21/24 HPI AIC follow up HPI Details The patient is a 69-year-old male presenting with elevated blood pressure and diabetes management. The patient had a previous blood pressure reading that was elevated, prompting today's visit for reassessment. Today's blood pressure reading was normal, and the patient is not currently on any antihypertensive medication. The patient has a history of Type 2 Diabetes Mellitus with a recent Hemoglobin A1c level of 8.9%, which is above the target range. The patient is currently on Trulicity 1.5 mg weekly, but due to the elevated A1c, an increase to 3 mg weekly was discussed. The patient expressed concerns about oral medications causing sickness, hence the preference for injectable therapy. The patient also reports erectile dysfunction, which may be related to uncontrolled diabetes. The discussion included the potential improvement of erectile function with better glycemic control. [facility] Medical History Erectile dysfunction Tobacco use disorder Hypertension Type 2 diabetes mellitus Cerebrovascular accident BPH w urinary obs/LUTS Nephrolithiasis Family History Mother No problems noted. Father No problems noted. Social History Household Members: Children Household Members Other:: 2 boys Housing: Apartment Alcohol intake: current Alcohol intake frequency: holidays/special occasions only Alcohol type: beer Patient Tobacco Use Status: Current everyday Tobacco user Tobacco use type: Cigar Cigarettes Per Day: 1 Years Smoked: 47years e-Cigarette/Vaping Use: Currently Using service: No Current occupational status: retired Cognitive needs: No Hearing needs: No Vision needs: No Questionnaire PHQ-9 Over the last 2 weeks, how often have you been bothered by any of the following problems? 1. Little interest or pleasure in doing things: not at all 2. Feeling down, depressed, or hopeless: not at all 3. Trouble falling or staying asleep, or sleeping too much: not at all 4. Feeling tired or having little energy: not at all 5. Poor appetite or overeating: not at all 6. Feeling bad about yourself - or that you are a failure or have let yourself or your family down: not at all 7. Trouble concentrating on things, such as reading the newspaper or watching television: not at all 8. Moving or speaking so slowly that other people could have noticed. Or the opposite - being so fidgety or restless that you have been moving around a lot more than usual: not at all 9. Thoughts that you would be better off or of hurting yourself in some way: not at all Total score: 0 Depression Screening Interpretation: Negative Depression Screening Done: Yes 42728 - PHQ-9 Billing: Yes Source: Developed by Drs. Pedro Hogan, Barbara Shepard, Arnoldo Holman and colleagues, with an educational kalyan from [employer]. Thrive Questionnaire Date Thrive assessed: 01/11/25 I am a: Patient Within the past 12 months, did the food you bought not last and you didn't have the money to get more?: Never true Within the past 12 months, did you worry whether your food would run out before you got money to buy more?: Never true Do you have trouble paying for medicines?: No Do you have trouble getting transportation to medical appointments?: No Do you have trouble paying your heating and electricity bill?: No Do you have trouble taking care of your child, family member or friend?: No Do you have trouble with day-to-day activities such as bathing, preparing meals, shopping, managing finances, etc.?: No Are you currently unemployed and looking for a job?: No Are you interested in more education?: No THRIVE Score: 0 AUDIT C Alcohol Use Questionnaire (AUDIT-C) 1. How often do you have a drink containing alcohol?: Monthly or less 2. How many drinks containing alcohol do you have on a typical day when you are drinking?: 1 or 2 3. How often do you have six or more drinks on one occasion?: Less than monthly Total Score: 2 Score Reviewed/Action Taken: No ZAINAB-7 AMB Questionnaire ZAINAB-7 Date ZAINAB - 7 assessed: 01/11/25 Feeling nervous, anxious, or on edge: 0 = Not at all Not being able to stop or control worryin = Not at all Worrying too much about different things: 0 = Not at all Trouble relaxin = Not at all Being so restless that it is hard to sit still: 0 = Not at all Becoming easily annoyed or irritable: 0 = Not at all Feeling afraid as if something awful might happen: 0 = Not at all Total ZAINAB-7 score (0-4 normal; 5-9 mild; 10-14 moderate; 15-21 severe): 0 Source: Developed by Drs. Pedro Hogan, Barbara Shepard, Arnoldo Holman and colleagues, with an educational kalyan from [employer]. ZAINAB-7 Assessment Billing ZAINAB-7 Assessment Tool: ZAINAB-7 Assessment 22805 Review of Systems Const Details: - Cardiovascular: Denies chest pain, palpitations, or syncope. - Endocrine: Reports elevated blood glucose levels, denies hypoglycemic episodes. - Genitourinary: Reports erectile dysfunction. All systems reviewed & are unremarkable except as noted in HPI and below Physical exam (Primary Care) Vital Signs: Last Vital Signs Temp 98.2 F 01/25/25 11:09 Pulse 80 01/25/25 11:09 Resp 14 01/25/25 11:09 BP 123/63 01/25/25 11:09 Pulse Ox 97 01/25/25 11:09 Oxygen Delivery Method Room Air 01/25/25 11:09 Care Plan Goal for BP management: <140/90 at Goal BMI result Body Mass Index 21.9 Normal BMI Tobacco/Smoking Status: Tobacco use Status Tobacco use date assessed 11/21/24 01/25/25 11:10 Patient Tobacco Use Status Current everyday Tobacco 01/25/25 11:10 Tobacco use type Cigar 01/25/25 11:10 e-Cigarette/Vaping Use Currently Using 01/25/25 11:10 PHQ-9: PHQ-9 Score PHQ-9: Total score 0 01/25/25 11:21 Depression Screening Interpretation: Negative Thrive Assessment: Date of Thrive Assessment Date Thrive assessed 01/11/25 01/25/25 11:10 Const Other: Appearance: Alert. Oriented X3. No acute distress. Head: Normal external exam. Normocephalic. Atraumatic. Eyes: Pupils are equal, round, and reactive to light. Extraocular movements intact. Conjunctiva and sclera normal. Eyelids normal. Throat: Pharynx normal. Uvula midline. Moist mucous membranes. Neck: Normal inspection. Neck supple. Full range of motion. Cardiovascular: Normal heart rate and rhythm. Respiratory: No respiratory distress. Painless inspiration. Back: Full range of motion noted. Skin: Skin warm and dry. Normal skin color. Normal skin turgor. No rashes/lesions/lacerations noted. Extremities: Extremities exhibit normal range of motion. Neuro: Oriented X 3. No motor deficit. No sensory deficit. Reflexes normal. Office Procedures Flu Questionnaire Does the patient have a severe egg allergy?: No Does the patient have severe life threatening allergies?: No Does the patient have a fever or illness today?: No Has the patient ever had Guillain-[place] Syndrome?: No Has the patient ever had any past reaction to a flu shot?: Yes Comment: patient states he got sick and could barely walk Immunizations Fluarix [id number] (PF) 45 mcg (15 mcg x 3)/0.5 mL IM syringe Performing Provider: Myla Leigh PA-C [place] [facility] Documented (not given) by: CHERELLE Quinn on 01/25/25 11:21 Reason Not Given: Patient Refused Results Reviewed Results Reviewed: - Labs: Hemoglobin A1c measured at 8.9% on November 23, 2024. Coding Level of Care Code Est Pt Level 4 (51596) Complex EM visit Add On G2211 Diagnoses Hypertension I10 Type 2 diabetes mellitus E11.9 Erectile dysfunction N52.9 Additional Codes ZAINAB-7 Assessment Billing - ZAINAB-7 Assessment Tool: ZAINAB-7 Assessment 48327 ([id number]) PHQ-9 - 56403 - PHQ-9 Billing: Yes ([id number]) Assessment & Plan Assessment & Plan (1) Hypertension: Code(s): I10 - Essential (primary) hypertension Category: Medical Plan: The patient's blood pressure was normal today, measuring 123/63 mmHg, and no antihypertensive medication is currently required. (2) Type 2 diabetes mellitus: Code(s): E11.9 - Type 2 diabetes mellitus without complications Category: Medical Plan: The patient's Hemoglobin A1c is elevated at 8.9%, indicating suboptimal glycemic control. The plan includes increasing Trulicity to 3 mg weekly and considering further increase to 4.5 mg if A1c remains high. Additionally, initiation of Glargine insulin at 10 units at bedtime was discussed to improve glycemic control. (3) Erectile dysfunction: Code(s): N52.9 - Male erectile dysfunction, unspecified Category: Medical Plan: The patient reports erectile dysfunction, which may be related to uncontrolled diabetes. Improvement in erectile function is anticipated with better glycemic control through the adjusted diabetes management plan. Plan Plan Patient was informed and verbally consented to the use of an ambient scribe for clinic note documentation during this visit. 1. Hypertension The patient's blood pressure was normal today, measuring 123/63 mmHg, and no antihypertensive medication is currently required. 2. Type 2 Diabetes Mellitus The patient's Hemoglobin A1c is elevated at 8.9%, indicating suboptimal glycemic control. The plan includes increasing Trulicity to 3 mg weekly and considering further increase to 4.5 mg if A1c remains high. Additionally, initiation of Glargine insulin at 10 units at bedtime was discussed to improve glycemic control. 3. Erectile Dysfunction The patient reports erectile dysfunction, which may be related to uncontrolled diabetes. Improvement in erectile function is anticipated with better glycemic control through the adjusted diabetes management plan. I discussed with the patient the importance of managing his diabetes to prevent complications such as cardiovascular disease and erectile dysfunction. We agreed to increase the Trulicity dose to 3 mg weekly and start Glargine insulin at 10 units at bedtime. The patient was informed about the need to monitor blood glucose levels three times a day to avoid hypoglycemia. Follow-up was scheduled for one month to reassess blood glucose control and adjust treatment as necessary. Orders: Orders Influenza [id number] Immunization Today Z23 - Encounter for immunization Medications: New insulin glargine (Lantus Solostar U-100 Insulin) 10 units (0.1 mL) subcut QPM 3 mL 0RF 1 month Changed From dulaglutide (Trulicity) 1.5 mg (0.5 mL) subcut QWEEK 2 mL 3RF E11.9 - Type 2 diabetes mellitus without complications To dulaglutide 3 mg (0.5 mL) subcut QWEEK 2 mL 3RF E11.9 - Type 2 diabetes mellitus without complications Refilled sildenafil (Viagra) administer 30 minutes to 4 hours before activity 50 mg PO DAILY PRN 20 tabs 1RF sexual activity Patient Instructions: - Increase Trulicity to 3 mg weekly as prescribed. - Start Glargine insulin at 10 units at bedtime. - Check blood glucose levels three times a day to monitor for hypoglycemia. - Return for follow-up in one month to reassess diabetes management.
[2025-01-25 11:09] VITALS: BP 123/63; PULSE 80; RESP 14; TEMP 36.8; O2SAT 97; BMI 21.9
== END 2025-01-25 11:35 | disposition home or self-care (01) ==
LOC: HO.HMCSH 11:09
PROVIDERS: PCP Internal Medicine; Visit Provider Physician Assistant Medical
DX: I10 Essential (primary) hypertension (principal); E11.9 Type 2 diabetes mellitus without complications; N52.9 Male erectile dysfunction, unspecified; Z23 Encounter for immunization

== ENCOUNTER → 2025-01-25 11:09 | Outpatient (BNVA) | payer MEDICARE, MEDICAID, SELFPAY | PROVIDERS: PCP Internal Medicine; Visit Provider Physician Assistant Medical | DX: I10 Essential (primary) hypertension (principal); E11.9 Type 2 diabetes mellitus without complications; N52.9 Male erectile dysfunction, unspecified; Z28.21 Immunization not carried out because of patient refusal | CPT/HCPCS: 90471; 96127; 99212 ==

== ENCOUNTER 2025-04-18 08:46 | Outpatient (AMB) | payer MEDICARE, MEDICAID, SELFPAY ==
--- NOTE | 2025-04-18 08:45 | A.OFFVIS_ITS ---
Intake Visit Reasons: BPH (not seen in 2 years, labs from Jan 15) UA SET Intake Note: New Patient is present for BPH (last seen 2020) Urology Rx:Sildenafil PVR:20 mls Blood Thinners:none Imaging completed: none Labs done :Total PSA 0.83, Total Testosterone : 627 , Free Testosterone Not performed by lab stated QNS Pump Rebuilder Required: No Accompanied by: Self / Same As Patient Allergies seafood Allergy (Unknown, Verified 04/18/25 08:47) Unknown HPI Comments Details: Shawn is a very pleasant Af[place] Jase male. He seen for the following urologic conditions - lower urinary tract symptoms Not seen for past 3 years PSA remains in line Has not had difficulty with urination Did have small stroke however has recovered Had questions regarding adequate fluid intake UA today specific gravity 1.015 Diabetic HbA1c 8.9, testosterone 627 Bladder scan 20 cc Lower urinary tract symptoms Initial presentation through emergency room with abdominal pain CT scan performed showing markedly enlarged prostate with constipation Had been given Flomax for stone passage but this helped his urine symptoms which had been gradually worsening Prior stone passage when age 22 Imaging - 09/03 CT 2 cm renal cyst right, mild right hydronephrosis with UPJ narrowing Labs - 09/03 Cr 1.2 - 11/03 PSA 0.5, 02/07 0.8 Therapeutic plan - continue with alpha-makeda PFSH Medical History Erectile dysfunction Tobacco use disorder Hypertension Type 2 diabetes mellitus Cerebrovascular accident BPH w urinary obs/LUTS Nephrolithiasis Family History Mother No problems noted. Father No problems noted. Social History Household Members: Children Household Members Other:: 2 boys Housing: Apartment Alcohol intake: current Alcohol intake frequency: holidays/special occasions only Alcohol type: beer Patient Tobacco Use Status: Current everyday Tobacco user Tobacco use type: Cigar Cigarettes Per Day: 1 Years Smoked: 47years e-Cigarette/Vaping Use: Currently Using service: No Current occupational status: retired Cognitive needs: No Hearing needs: No Vision needs: No Review of Systems Const Denies chills and Denies fever(s) Card Reports no additional complaints and Denies syncope Resp Denies cough GI Denies abdominal pain and Denies heartburn Reports as per HPI and Denies change in libido Neuro Denies syncope Psych Denies change in libido Endo Denies change in libido Physical Exam Const General: cooperative, healthy appearing, comfortable and no acute distress Orientation/consciousness: patient oriented x3 HEENT Face and sinus: Yes normal facial exam Mouth: moist mucous membranes Neck Neck: Yes normal visual inspection, Yes full ROM and Yes trachea midline Chest Chest palpation & inspection: normal inspection of the chest Resp Effort & Inspection: normal respiratory effort, able to speak in complete sentences and no respiratory distress GI Inspection: Yes normal to inspection Back/Spine/Pelvis Cervical Spine: normal cervical lordosis Thoracic/Lumbar Spine: thoracic and lumbar spine normal to inspection Skin General skin exam: no rashes or lesions noted Neuro General: patient oriented x3, gait normal, tone normal and moves all extremities Extrem General: Yes normal to inspection and Yes capillary refill normal Office Procedures Post Void Residual Post Residual Void Post Void Residual (PVR): 20 [id number] Void Residual by ultrasound Results AMB Urinalysis, Automated UA Leukoctes 0 Ronald/uL Last Edit by Cara Reynaga [facility] on 04/18/25 09:00 UA Nitrite Negative Last Edit by Cara Reynaga [facility] on 04/18/25 09:00 UA Urobilinogen 0.2 mg/dL Last Edit by Cara Reynaga [facility] on 04/18/25 09:00 UA Protein 30 mg/dL Last Edit by Cara Reynaga [facility] on 04/18/25 09:00 UA pH 6.0 Last Edit by Cara Reynaga [facility] on 04/18/25 09:00 UA Blood 0 Julio Cesar/uL Last Edit by Cara Reynaga [facility] on 04/18/25 09:00 UA Specific [place] 1.015 Last Edit by Cara Reynaga [facility] on 04/18/25 09:0 0 UA Ketone Negative Last Edit by Cara Reynaga [facility] on 04/18/25 09:00 UA Bilirubin 0 mg/dL Last Edit by Cara Reynaga [facility] on 04/18/25 09:00 UA Glucose 0 mg/dL Last Edit by Cara Reynaga [facility] on 04/18/25 09:00 Results Reviewed Results Reviewed: Laboratory Last Values Urine pH (Auto) 6.0 04/18/25 08:59 Specific [place] (Auto) 1.015 04/18/25 08:59 Urine Protein (Auto) 30 mg/dL 04/18/25 08:59 Glucose (UA)(Auto) 0 mg/dL 04/18/25 08:59 Urine Ketones (Auto) Negative 04/18/25 08:59 Urine Blood (Auto) 0 Julio Cesar/uL 04/18/25 08:59 Urine Nitrite (Auto) Negative 04/18/25 08:59 Urine Bilirubin (Auto) 0 mg/dL 04/18/25 08:59 Urine Urobilinogen (Auto) 0.2 mg/dL 04/18/25 08:59 Leukocyte Esterase (Auto) 0 Ronald/uL 04/18/25 08:59 Assessment & Plan Assessment & Plan (1) BPH w urinary obs/LUTS: Code(s): N40.1 - Benign prostatic hyperplasia with lower urinary tract symptoms; N13.8 - Other obstructive and reflux uropathy Category: Medical Plan P.r.n. follow-up Orders: Orders AMB Post Void Residual by ultrasound Today N40.1 - Benign prostatic hyperplasia with lower urinary tract symptoms AMB Urinalysis Automated Today N13.8 - Other obstructive and reflux uropathy, N40.1 - Benign prostatic hyperplasia with lower urinary tract symptoms Patient Instructions: This note is constructed using voice recognition software. While every effort has been made to ensure accuracy director of radio services errors may have been included. Imaging studies, laboratory and physical exam results were discussed and reviewed in detail. No major barriers to patient understanding were identified. An opportunity to ask questions regarding the treatment plan was provided. All questions were answered. The patient expressed understanding and agreement with the above treatment plan. The patient is aware they should contact our office by phone for worsening of their current condition or the appearance of new urologic symptoms. Compliance is encouraged with any medications and followup testing that is ordered. It is a privilege to participate in the urologic care of your patient. If you have any questions or concerns regarding treatment for the above conditions, or other urologic issues, please do not hesitate to contact me. The office telephone contact is [phone]. Sincerely, Dr Dayne Chowdhury MD, [facility] - Urology Compassionate Specialist Care for the Genitourinary System Coding Level of Care Code New Pt Level 3 (04742) Diagnoses BPH w urinary obs/LUTS N40.1; N13.8 CPT Codes Post Residual Void - PVR CPT Code: 31674-Eovu Void Residual by ultrasound ([id number])
== END 2025-04-18 09:54 | disposition home or self-care (01) ==
LOC: HO.HUSH 08:46
PROVIDERS: PCP Internal Medicine; Visit Provider Urology
DX: N40.1 Benign prostatic hyperplasia with lower urinary tract symptoms (principal); N13.8 Other obstructive and reflux uropathy
CPT/HCPCS: 99203

== ENCOUNTER → 2025-04-18 08:46 | Outpatient (BNVA) | payer MEDICARE, MEDICAID, SELFPAY | PROVIDERS: PCP Internal Medicine; Visit Provider Urology | DX: N40.1 Benign prostatic hyperplasia with lower urinary tract symptoms (principal); N13.8 Other obstructive and reflux uropathy | CPT/HCPCS: 51798; 81003; 99202 ==